=== PATIENT | female | born 1980 ===

== ENCOUNTER 2018-12-04 18:56 | Inpatient (IN) | payer OTHER ==
--- NOTE | 2018-12-04 19:17 | Emergency Department Report ---
Blank Doc - Documentation Documentation: This is a 39-year-old female that presents with chest pain, SOB, cough, and he adache. Also stated has had fevers. This initial assessment/diagnostic orders/clinical plan/treatment(s) is/are subject to change based on patient's health status, clinical progression and re-assessment by fellow clinical providers in the ED. Further treatment and workup at subsequent clinical providers discretion. Patient/guardians urged not to elope from the ED as their condition may be serious if not clinically assessed and managed. Initial orders include: 1- Patient sent to MAIN for further evaluation and treatment 2- EKG 3-CXR 4-Labs
[2018-12-04 19:38] LABS: Basophils # (Auto) 0.1 K/mm3 (0.0-0.1); Basophils % (Auto) 0.6 % (0.0-1.8); Eosinophils # (Auto) 0.1 K/mm3 (0.0-0.4); Eosinophils % (Auto) 0.5 % (0.0-4.3); Hematocrit 40.5 % (30.3-42.9); Hemoglobin 13.9 gm/dl (10.1-14.3); Lymphocytes # (Auto) 2.7 K/mm3 (1.2-5.4); Lymphocytes % (Auto) 28.1 % (13.4-35.0); Mean Corpuscular HGB Conc 35 % (30-34); Mean Corpuscular Volume 88 fl (79-97); Monocytes # (Auto) 0.8 K/mm3 (0.0-0.8); Monocytes % (Auto) 7.8 % (0.0-7.3); Platelet Count 305 K/mm3 (140-440); Red Blood Count 4.58 M/mm3 (3.65-5.03); Red Cell Distribution Width 13.5 % (13.2-15.2)
[2018-12-04 19:53] LABS: INR 0.87 (0.87-1.13)
[2018-12-04 19:54] LABS: Partial Thromboplastin Time 25.8 Sec. (24.2-36.6)
[2018-12-04 20:12] LABS: BUN/Creatinine Ratio 14; Blood Urea Nitrogen 7 mg/dL (7-17); Hemolysis Index 17
--- NOTE | 2018-12-04 20:47 | XRay Report ---
PROCEDURE: XR CHEST ROUTINE 2V TECHNIQUE: PA and lateral chest radiographs were obtained. HISTORY: Chest Pain COMPARISONS: None. FINDINGS: Heart: Normal. Mediastinum/Vessels: Normal. Lungs/Pleural space: There is moderate degree of elevation of right hemidiaphragm. Otherwise bilater al lungs and pleural spaces are clear.. Bony thorax: No acute osseous abnormality. IMPRESSION: No acute pulmonary process. This document is electronically signed by Naeem Reid MD., December 04 2018 08:45:09 PM ET
[2018-12-04] MEDS ORDERED: NACL 0.9% 1000 ML 1,000 ML IV ONE (21:28)
[2018-12-04] MEDS ORDERED: TORADOL IV ONE (21:28)
--- NOTE | 2018-12-04 21:38 | Emergency Department Report ---
ED General Adult HPI - General Chief complaint: Chest Pain Stated complaint: CHEST PAIN/FEVER/ARM FACE PAIN Time Seen by Provider: 12/04/18 19:13 Source: patient, family Mode of arrival: Ambulatory Limitations: No Limitations - History of Present Illness Initial comments: 39-year-old female, no past medical history, presents to the ED with flu-like symptoms and right facial pain 3 days. Patient reports cough, fever, chest pain with cough, vomiting. She also reports right facial pain and right anterior neck pain. Patient denies headache, sore throat, ear pain. Pain in the neck is worse with palpation. -: days(s) (3) Location: face, neck, chest Radiation: non-radiation Severity scale (0 -10): 9 Quality: aching Consistency: constant Improves with: none Worsens with: other (palpation) Associated Symptoms: chest pain, cough, fever/chills, nausea/vomiting - Related Data Home Medications Medication Instructions Recorded Confirmed Last Taken No Known Home Medications [No 12/05/18 12/05/18 Unknown Reported Home Medications] Allergies Allergy/AdvReac Type Severity Reaction Status Date / Time No Known Allergies Allergy Verified 12/05/18 00:25 ED Review of Systems ROS: Stated complaint: CHEST PAIN/FEVER/ARM FACE PAIN Other details as noted in HPI Comment: All other systems reviewed and negative Constitutional: fever ENT: denies: ear pain, throat pain Respiratory: cough. denies: shortness of breath Cardiovascular: chest pain (with cough) Gastrointestinal: nausea, vomiting Musculoskeletal: back pain Neurological: denies: headache ED Past Medical Hx - Past Medical History Previous Medical History?: No - Surgical History Past Surgical History?: Yes Additional Surgical History: c sec x2, gall stones - Social History Smoking Status: Never Smoker Substance Use Type: None - Medications Home Medications: Home Medications Medication Instructions Recorded Confirmed Last Taken Type No Known Home Medications [No 12/05/18 12/05/18 Unknown History Reported Home Medications] ED Physical Exam - General Limitations: No Limitations General appearance: alert - Head Head exam: Present: atraumatic, normocephalic - Eye Eye exam: Present: normal appearance - ENT ENT exam: Present: normal orophraynx, mucous membranes moist, TM's normal bilaterally - Neck Neck exam: Present: normal inspection, other (no swelling noted, tenderness to right anterior neck, no masses palpated) - Respiratory Respiratory exam: Present: normal lung sounds bilaterally. Absent: respiratory distress - Cardiovascular Cardiovascular Exam: Present: regular rate, normal rhythm - GI/Abdominal GI/Abdominal exam: Present: soft. Absent: distended, tenderness - Extremities Exam Extremities exam: Present: normal inspection - Neurological Exam Neurological exam: Present: alert, oriented X3 - Psychiatric Psychiatric exam: Present: normal affect, normal mood - Skin Skin exam: Present: warm, dry, intact, normal color ED Course Vital Signs 12/04/18 12/04/18 12/04/18 20:30 21:00 23:00 Temperature 98.2 F Pulse Rate 96 H 101 H 95 H Respiratory 19 17 17 Rate Blood Pressure 109/67 91/46 Blood Pressure 106/66 [Left] O2 Sat by Pulse 96 97 98 Oximetry 12/05/18 00:01 Temperature Pulse Rate 102 H Respiratory 11 L Rate Blood Pressure 93/49 Blood Pressure [Left] O2 Sat by Pulse 99 Oximetry - Reevaluation(s) Reevaluation #1: 12/05/18 00:01 Spoke w/ patient regarding CT findings. Patient denies numbness/ weakness in extremities, headache, visual changes, neck trauma, recent chiropractic manipulation. - Consultations Consultation #1: 12/04/18 23:12 Reached out to [facility] for neurovascular physician for pt's carotid dissection. I was put in contact w/ Dr Le, vascular surgeon, at [facility] Main. States pt likely does not require neurovascular since no neuro deficits. Only needs heparin gtt and vascular service here at [facility] should be able to handle. Dr Aric Hermosillo, vascular on-call at [facility], paged. 12/05/18 00:56 Spoke w/ Dr De Los Santos since unable to reach Dr Hermosillo. States ok for pt to be admitted here by hospitalist. Place on heparin drip, obtain dedicated CTA Head and Neck in the AM since pt already received IV contrast earlier. Will see in the AM. ED Medical Decision Making - Lab Data Result diagrams: 12/04/18 19:25 12/04/18 19:25 - Radiology Data Radiology results: report reviewed, image reviewed - Medical Decision Making 39-year-old female presents to ED with URI symptoms and right anterior neck pain. Vitals normal, patient afebrile. The CBC is normal. Patient with right anterior neck tenderness on exam, so CT soft tissue neck ordered. CT concerning for possible right carotid artery dissection. Patient is neurologically intact, denies any visual changes, denies headache. Spoke with vascular s Dr. Filiberto gasca. Recommends heparin drip and CTA head and neck in the morning. Patient will be admitted to the hospitalist, Dr Rothman. - Differential Diagnosis epiglottitis, parapharyngeal abscess, tonsillitis Critical Care Time: Yes Critical care time in (mins) excluding proc time.: 35 Critical care attestation.: If time is entered above; I have spent that time in minutes in the direct care o f this critically ill patient, excluding procedure time. Critical Care Time: 35 minutes ED Disposition Clinical Impression: Carotid artery dissection Disposition: OP ADMIT IP TO THIS HOSP Is pt being admited?: Yes Condition: Stable Time of Disposition: 01:07
--- NOTE | 2018-12-04 23:09 | Cat Scan Report ---
PROCEDURE: CT NECK W CON TECHNIQUE: Following administration of IV contrast axial helical imaging was performed through the n ada with sagittal and coronal reformatted images obtained. HISTORY: right sided neck pain Tenderness right side of neck to palpation. No history of recent traum a. COMPARISONS: None FINDINGS: There is abnormal decreased density with the appearance of slight marginal enhancement in the region of the right carotid sheath (images 52 through 59, series of 102 axial images). The Hounsfield units of this collection measures 55 which is higher than would be expected for simple edema or a simple fl uid collection. This is in the region of the distal common carotid artery and carotid bifurcation. Th ere is no evidence of decreased caliber of the vessel. There is normal enhancement of the carotid art tony without evidence of an intimal flap. There are no other areas of abnormal density in the soft tissues of the neck. There are mildly prominent bilateral cervical lymph nodes. These are nonspecific in appearance but ar e most likely inflammatory in nature. None demonstrate necrosis. The parotid and submandibular glands are unremarkable in appearance. There is no evidence of compromise of the airway. The epiglottis and aryepiglottic folds are normal i n appearance. There is mild prominence of the palatine tonsils and adenoids. The bony structures are unremarkable. IMPRESSION: 1. Abnormal density with slight marginal enhancement in the region of the right carotid sheath. Diffe rential diagnosis includes inflammatory process (carotidynia) and infectious process. A carotid disse ction cannot entirely be excluded given the Hounsfield units of 55 which could represent blood produc ts. The above finding was discussed with Dr. Ortiz at 10:50 PM December 04, 2018. 2. Otherwise normal study. This document is electronically signed by Suzanna Bustamante MD., December 04 2018 11:08:10 PM ET
[2018-12-05] MEDS ORDERED: NACL 0.9% 1000 ML 1,000 ML IV ONE (00:50)
[2018-12-05] MEDS: HEPARIN/ 0.45% NACL-25,000 UNIT/500 ML 25,000 UNIT/500 ML BAG IV SCH ×2 (02:02→15:28)
[2018-12-05] MEDS ORDERED: TYLENOL PR PRN (02:03)
[2018-12-05] MEDS ORDERED: KCL 10MEQ/100ML 10 MEQ/100 ML BAG IV ONE ×4 (03:59→10:56)
--- NOTE | 2018-12-05 05:23 | History and Physical Report ---
CHIEF COMPLAINT: Pain in the right anterior neck area. HISTORY OF PRESENT ILLNESS: The patient is a 39-year-old female who started initially by having flu-like symptoms and then developed right anterior neck and facial pain going on for about 3 days with symptoms of cough, fever, chest discomfort and vomiting. There is no history of headache, no history of sore throat or ear pain. The patient states that the pain is located in the anterior aspect of the right side of the neck, which is worse with palpation and movement. There is no history of trauma. PAST MEDICAL HISTORY: Unremarkable. PAST SURGICAL HISTORY: Pertinent for x 2 and gallbladder surgery. FAMILY HISTORY: Noncontributory. SOCIAL HISTORY: The patient does not smoke, does not drink alcohol, and does not use illicit drugs. MEDICATIONS: There are no known home medications. ALLERGIES: There are no known drug allergies. REVIEW OF SYSTEMS: CONSTITUTIONAL: There is fever. There is chills. No diaphoresis. HEENT: There is no headache or sore throat. CARDIOVASCULAR SYSTEM: There is chest discomfort especially with breathing. No orthopnea. RESPIRATORY SYSTEM: There is no shortness of breath, but there is cough. GASTROINTESTINAL SYSTEM: There is nausea and vomiting, no diarrhea, no abdominal pain. NEUROLOGICAL SYSTEM: There is no numbness, no dizziness, no altered mental status. MUSCULOSKELETAL SYSTEM: There is pain in the anterior aspect of the right side of the neck. There is no joint swelling. DERMATOLOGICAL SYSTEM: There is no skin rash or itching. GENITOURINARY SYSTEM: There is no dysuria, hematuria or flank pain. Rest of system review is normal. PHYSICAL EXAMINATION: GENERAL: At the time of exam, the patient was found to be alert, oriented x 3 and not in acute distress. VITAL SIGNS: At the initial time of presentation show temperature of 98.2 degrees Fahrenheit, pulse of 96, respirations 19, blood pressure 106/66, O2 sat of 96% on room air. HEENT: Shows pupils to be equal, round, and reactive to light and accommodating. Extraocular motions are intact. NECK: Supple with no JVD or carotid bruit, but there is tenderness in the right part of the neck on palpation. CARDIOVASCULAR: Shows normal first and second heart sounds with no gallops or murmur. RESPIRATORY SYSTEM: Shows good air entry on both sides of the lungs with no abnormal breath sounds. GASTROINTESTINAL SYSTEM: Shows abdomen to be full, soft, nontender with no organomegaly or rigidity. NEUROLOGIC: Shows no focal deficits. MUSCULOSKELETAL SYSTEM: Shows no joint swelling, but there is tenderness in the right anterior neck area with palpation. DERMATOLOGICAL SYSTEM: Shows no skin rash. GENITOURINARY SYSTEM: Shows no costovertebral angle tenderness. PERTINENT LABORATORY AND IMAGING STUDIES: The patient had a chest x-ray done and chest x-ray shows no acute pulmonary process. Also, the patient had CT of the neck done. CT of the neck shows dissection of the carotid artery. Lab results: The patient had CBC done that came back unremarkable except for slight increase in monocyte count of 7.8% on CBC differential. Coagulation studies were unremarkable. Chemistry: Chemistry showed slight decrease in potassium level of 3.2 and the patient's C-reactive protein was elevated with a value of 1.5. An influenza serology was unremarkable. DIAGNOSES: 1. Carotid artery dissection. 2. Hypokalemia. PLAN OF CARE: 1. The patient will be admitted to [facility] as inpatient. 2. The patient will continue IV heparin drip started in the Emergency Room as recommended by the vascular surgeon. 3. The patient will continue vascular surgical consult with Dr. De Los Santos who requested for CT angiogram of head and neck in the morning. 4. The patient will have CT angiogram of the head and neck done this morning. 5. The patient will be on IV morphine 2 mg every 3 hours as needed for pain and will be on Tylenol 650 mg rectally every 4 hours for fever and headache. 6. The patient will be on IV Zofran 4 mg every 8 hours as needed for nausea and vomiting and will be n.p.o. for possible intervention by the vascular surgeon. 7. The patient will have IV potassium chloride, K-rider given as 10 mEq in 100 mL of normal saline x 3 doses. 8. Further management of the patient's condition will be dependent on vascular surgical consult. JOB# [id number] OCN/NTS
[2018-12-05] MEDS: KCL 10MEQ/100ML 10 MEQ/100 ML BAG IV SCH ×3 (06:25→10:49)
--- NOTE | 2018-12-05 08:09 | Cat Scan Report ---
PROCEDURE: CT ANGIO HEAD, CT ANGIO NECK TECHNIQUE: CT imaging is obtained through the head and neck an angiographic phase following intraven ous administration of contrast. Transaxial, coronal and sagittal reformations with maximum intensity projection are provided HISTORY: CAROTID ARTERY DISECTION COMPARISONS: 12/04/2018 FINDINGS: Head: The anterior and posterior communicating arteries are normal in caliber. Well opacified anterior and middle cerebral arteries. Branch vessels within the anterior and middle cerebral arterial distribut ion are well opacified and normal in caliber. Normal caliber basilar artery. Posterior cerebral arteries and their major branches are well opacifi ed and normal in caliber. NECK: Carotid and vertebral arteries are well opacified and normal in caliber. No dissection flap. A small amount of asymmetric soft tissue is seen within the right carotid sheath at the bifurcation, unchange d from prior. No wall irregularity or contrast extravasation. The aortic arch is not well evaluated due to cardiac motion. The lung apices are unremarkable. Remain ing mucosal spaces of the neck are unremarkable. IMPRESSION: No intracranial stenosis/large vessel occlusion.The [place] is intact. No carotid or vertebral artery dissection identified. Asymmetric soft tissue within the carotid sheat h surrounding the right carotid bifurcation may again be infectious or inflammatory in etiology. Diff erential diagnosis also includes asymmetric lymphoid tissue, which is normally present in the carotid sheath. Correlation with ESR and relevant laboratory values for clinical evidence of vasculopathy is requested. This document is electronically signed by Jeovany Shirley MD., December 05 2018 08:07:41 AM ET
--- NOTE | 2018-12-05 08:55 | Event Note ---
Date: 12/05/[address] scans. No carotid dissection. There is an abnormal finding of soft tissue density around part of the carotid. Consider neurology or ENT consult. Will see patient later today.
[2018-12-05 13:35] LABS: Alanine Aminotransferase 16 units/L (7-56); Albumin 3.5 g/dL (3.9-5); BUN/Creatinine Ratio 18; Blood Urea Nitrogen 7 mg/dL (7-17); Calcium 8.1 mg/dL (8.4-10.2); Hemolysis Index 28
--- NOTE | 2018-12-05 15:44 | Progress Note ---
Subjective Date of service: 12/05/18 Principal diagnosis: Rule out Right Carotid Dissection Interval history: The patient is a 39 year old female from [facility], who has been in the [place] for 2 years. She states she has been having facial swelling for approximately 2 months and about 3 days ago she began experiencing Fever/Chills associated with right neck and facial pain. She started taking Amoxicillin, that was sent to her by a family member. The pain worsened over the next 3 days so she presented to the Emergency room. Her work up included a CT scan of her neck that was questionable for a dissection of her right carotid artery. She eventually had a CTA of the neck that ruled out the dissection but had some irregularity around the right carotid with inflammatory changes that may suggest a vasculitis. She has and elevated CRP and mildly elevated ESR. She denies diarrhea, Nausea, or vomiting. Objective - Constitutional Vitals: Vital Signs - 12hr 12/05/18 12/05/18 12/05/18 04:00 05:00 06:00 Pulse Rate 83 90 90 Respiratory 22 19 21 Rate Blood Pressure 101/62 110/61 106/57 O2 Sat by Pulse 100 100 Oximetry 12/05/18 07:05 Pulse Rate Respiratory Rate Blood Pressure 91/48 O2 Sat by Pulse 98 Oximetry - Labs CBC & Chem 7: 12/04/18 19:25 12/05/18 13:04 Labs: Abnormal lab results 12/04/18 12/04/18 12/05/18 Range/Units 19:25 19:25 00:49 MCHC 35 H (30-34) % [place] % (Auto) 7.8 H (0.0-7.3) % Potassium 3.2 L (3.6-5.0) mmol/L Chloride (98-107) mmol/L Carbon Dioxide 19 L (22-30) mmol/L Creatinine 0.5 L (0.7-1.2) mg/dL Glucose 137 H (65-100) mg/dL Calcium (8.4-10.2) mg/dL C-Reactive Protein 1.50 H (0.00-1.30) mg/dL Albumin (3.9-5) g/dL 12/05/18 Range/Units 13:04 MCHC (30-34) % [place] % (Auto) (0.0-7.3) % Potassium 3.4 L (3.6-5.0) mmol/L Chloride 108.1 H (98-107) mmol/L Carbon Dioxide 21 L (22-30) mmol/L Creatinine 0.4 L (0.7-1.2) mg/dL Glucose (65-100) mg/dL Calcium 8.1 L (8.4-10.2) mg/dL C-Reactive Protein (0.00-1.30) mg/dL Albumin 3.5 L (3.9-5) g/dL Medications & Allergies - Medications Allergies/Adverse Reactions: Allergies No Known Allergies Allergy (Verified 12/05/18 00:25) Home Medications: Home Medications Medication Instructions Recorded Confirmed Last Taken Type No Known Home Medications [No 12/05/18 12/05/18 Unknown History Reported Home Medications] Active Medications: Generic Name Dose Route Start Last Admin Trade Name Freq PRN Reason Stop Dose Admin Acetaminophen 650 mg 12/05/18 02:03 Tylenol MT Q4H PRN Fever >101 Heparin Sodium/Sodium Chloride 25,000 unit in 500 mls @ 29 mls/hr 12/05/18 01:00 12/05/18 11:30 Heparin/ 0.45% Nacl-25,000 Unit/500 Ml IV Infused TITR ISA Titration Protocol 1,450 UNITS/HR Morphine Sulfate 2 mg 12/05/18 02:01 Morphine IV Q3H PRN Pain, Moderate (4-6) Ondansetron HCl 4 mg 12/05/18 02:02 Zofran IV Q8H PRN Nausea And Vomiting
--- NOTE | 2018-12-05 16:06 | Consultation ---
History of Present Illness - Reason for Consult Consult date: 12/05/18 Rule Out Right Carotid Disscetion Requesting physician: NADEEN GLEZ - History of Present Illness The patient is a 39 year old female from [facility], who has been in the [facility] for 2 years. She states she has been having facial swelling for approximately 2 months and about 3 days ago she began experiencing Fever/Chills associated with right neck and facial pain. She started taking Amoxicillin, that was sent to her by a family member. The pain worsened over the next 3 days so she presented to the Emergency room. Her work up included a CT scan of her neck that was questionable for a dissection of her right carotid artery. She eventually had a CTA of the neck that ruled out the dissection but had some irregularity around the right carotid with inflammatory changes that may suggest a vasculitis. She has and elevated CRP and mildly elevated ESR. She denies diarrhea, Nausea, or vomiting. Past History Past Surgical History: cholecystectomy, Social history: no significant social history Family history: no significant family history Medications and Allergies Allergies Allergy/AdvReac Type Severity Reaction Status Date / Time No Known Allergies Allergy Verified 12/05/18 00:25 Home Medications Medication Instructions Recorded Confirmed Last Taken Type No Known Home Medications [No 12/05/18 12/05/18 Unknown History Reported Home Medications] Active Meds: Active Medications Acetaminophen (Tylenol) 650 mg NC Q4H PRN PRN Reason: Fever >101 Heparin Sodium/Sodium Chloride (Heparin/ 0.45% Nacl-25,000 Unit/500 Ml) 25,000 unit in 500 mls @ 29 mls/hr IV TITR ISA; Protocol Last Titration: 12/05/18 11:30 Dose: Infused Documented by: Morphine Sulfate (Morphine) 2 mg IV Q3H PRN PRN Reason: Pain, Moderate (4-6) Ondansetron HCl (Zofran) 4 mg IV Q8H PRN PRN Reason: Nausea And Vomiting Review of Systems Constitutional: fever, chills, anorexia, poor appetite Ears, nose, mouth and throat: ear pain, other (Facial swelling), no tinnitis, no dental pain, no mouth pain Breasts: deferred Cardiovascular: no chest pain, no shortness of breath Respiratory: cough, no hemoptysis, no shortness of breath, no dyspnea on exertion Gastrointestinal: no nausea, no vomiting, no diarrhea Genitourinary Female: no dyspareunia Musculoskeletal: neck pain (right) Integumentary: no rash Neurological: no paralysis, no weakness, no parathesias, no numbness, no tingling Exam - Constitutional Vitals: Temp Pulse Resp BP Pulse Ox 98.2 F 90 21 91/48 98 12/04/18 20:30 12/05/18 06:00 12/05/18 06:00 12/05/18 07:05 12/05/18 07:05 General appearance: Present: no acute distress, other (Facial swelling) - Neck Neck: Present: supple, other (tenderness over the right neck/carotid) - Respiratory Respiratory effort: normal - Cardiovascular Rhythm: regular - Extremities Extremities: no ischemia, pulses intact Peripheral Pulses: within normal limits - Abdominal General gastrointestinal: Present: soft, non-tender, non-distended Female genitourinary: Present: deferred - Rectal Rectal Exam: deferred - Integumentary Integumentary: Present: clear - Musculoskeletal Musculoskeletal: strength equal bilaterally - Neurologic Neurologic: no focal deficits Results - Labs CBC & Chem 7: 12/04/18 19:25 12/05/18 13:04 Labs: Abnormal lab results 12/04/18 12/04/18 12/05/18 Range/Units 19:25 19:25 00:49 MCHC 35 H (30-34) % [place] % (Auto) 7.8 H (0.0-7.3) % Potassium 3.2 L (3.6-5.0) mmol/L Chloride (98-107) mmol/L Carbon Dioxide 19 L (22-30) mmol/L Creatinine 0.5 L (0.7-1.2) mg/dL Glucose 137 H (65-100) mg/dL Calcium (8.4-10.2) mg/dL C-Reactive Protein 1.50 H (0.00-1.30) mg/dL Albumin (3.9-5) g/dL 12/05/18 Range/Units 13:04 MCHC (30-34) % [place] % (Auto) (0.0-7.3) % Potassium 3.4 L (3.6-5.0) mmol/L Chloride 108.1 H (98-107) mmol/L Carbon Dioxide 21 L (22-30) mmol/L Creatinine 0.4 L (0.7-1.2) mg/dL Glucose (65-100) mg/dL Calcium 8.1 L (8.4-10.2) mg/dL C-Reactive Protein (0.00-1.30) mg/dL Albumin 3.5 L (3.9-5) g/dL - Imaging and Cardiology CT Scan - head: other (CTA Neck reviewed) Assessment and Plan The patient does not have a carotid dissection so the Heparin drip was stopped. She has elevated CRP and mildly elevated ESR with evidence of thickening and inflammation of the right carotid. Recommend Rheumatology evaluation, which will likely be performed as an outpatient. Consider consulting neurology for suggestions of further workup as an inpatient. May try a course of steroid to see if this resolves her symptoms.
--- NOTE | 2018-12-05 17:20 | Consultation ---
History of Present Illness Consult date: 12/05/18 Chief complaint: facial pain, lymphadenopathy History of present illness: This is a 39 YO F who presented to the ED with ~ 4 days of facial pain, swelling, fever and chills. Pt is interviewed with on site interpretor. Says she took amoxicillin sent to her by a family member but did not get better. Weak all over but no specific weakness in her arms or legs. No trouble moving her face, speaking or swallowing. No recent illness or medication changes. Past History Past Surgical History: cholecystectomy, Social history: no significant social history Family history: no significant family history Medications and Allergies Allergies Allergy/AdvReac Type Severity Reaction Status Date / Time No Known Allergies Allergy Verified 12/05/18 00:25 Home Medications Medication Instructions Recorded Confirmed Last Taken Type No Known Home Medications [No 12/05/18 12/05/18 Unknown History Reported Home Medications] Active Meds: Active Medications Acetaminophen (Tylenol) 650 mg [place] Q4H PRN PRN Reason: Fever >101 Heparin Sodium/Sodium Chloride (Heparin/ 0.45% Nacl-25,000 Unit/500 Ml) 25,000 unit in 500 mls @ 29 mls/hr IV TITR ISA; Protocol Last Titration: 12/05/18 11:30 Dose: Infused Documented by: Methylprednisolone Sodium Succinate (Solu-Medrol) 40 mg IV Q12H ISA Morphine Sulfate (Morphine) 2 mg IV Q3H PRN PRN Reason: Pain, Moderate (4-6) Ondansetron HCl (Zofran) 4 mg IV Q8H PRN PRN Reason: Nausea And Vomiting Review of Systems Constitutional: fever, chills Physical Examination - Vital Signs Vital Signs: Vital Signs Temp Pulse Resp BP Pulse Ox 98.2 F 96 H 19 106/66 96 12/04/18 20:30 12/04/18 20:30 12/04/18 20:30 12/04/18 20:30 12/04/18 20:30 - Constitutional General appearance: comfortable - EENT EENT: Present: ATNC, mucous membranes moist, other (glandular swelling at the angle of the mandible on the right, ? parotid) - Respiratory Respiratory: Present: lungs clear - Cardiovascular Cardiovascular: Present: regular rate - Gastrointestinal Gastrointestinal: Present: normoactive bowel sounds - Neurologic Cranial nerve examination: PERRL, EOMI, V1/V2/V3 grossly intact, face symmetric, tongue midline Speech examination: intact Sensorimotor examination: intact Motor examination - right side: 12/29: biceps, triceps, wrist flexion, wrist extension, precision instrument and tool maker, hip flexors, knee extensors, dorsiflexion, toe extension (EHL), plantarflexion Motor examination - left side: 12/29: biceps, triceps, wrist flexion, wrist extension, precision instrument and tool maker, hip flexors, knee extensors, dorsiflexion, toe extension (EHL), plantarflexion Detailed sensory examination: intact Reflex and gait examination: intact Reflexes: 1+: ankle, bicep, knee, tricep - Psychiatric Psychiatric: Present: mood/affect appropriate Results - Laboratory Findings CBC and BMP: 12/04/18 19:25 12/05/18 13:04 Abnormal Lab Findings: Abnormal Labs 12/04/18 12/04/18 12/05/18 19:25 19:25 00:49 MCHC 35 H [place] % (Auto) 7.8 H Potassium 3.2 L Chloride Carbon Dioxide 19 L Creatinine 0.5 L Glucose 137 H Calcium C-Reactive Protein 1.50 H Albumin 12/05/18 13:04 MCHC [place] % (Auto) Potassium 3.4 L Chloride 108.1 H Carbon Dioxide 21 L Creatinine 0.4 L Glucose Calcium 8.1 L C-Reactive Protein Albumin 3.5 L - Diagnostic Findings Additional findings: cta head and neck unremarkable, ? mild change at bifurcation stable since last examination CRP slightly elevated Assessment and Plan This is a 39 YO F with right glandular swelling, likely infection/inflammation. No neurological deficits. Not consistent with vasculitis. Recommend: Needs medical work up for infection- consider ID eval if unclear about antib iotics needed Consider possible CT of soft tissue of the neck or consult with radiology on how best to view the glands in the area of question Would NOT give steroids at this point since per presentation is consistent with infection Continue care for any medical issues as you are doing Thank you for the consult.
--- NOTE | 2018-12-05 17:43 | Progress Note ---
Assessment and Plan Assessment and plan: --Swelling of face and neck; Emperic antibiotics, --Swelling around the right carotid sheath /probably infectious Empiric antibiotics, cultures, supportive care --? Carotid artery dissection; vascular evaluated, ruled out carotid artery dissection Heparin drip discontinued --History of febrile illness, cultures, empiric antibiotics --Hypokalemia: replaced with KCl; --Obesity; BMI 38.3, weight reduction and medically stable Closely monitor the patient and adjust management as needed History Interval history: Patient seen and examined, conversed through bilingual staff member Patient was admitted this morning with neck and facial swelling Evaluated but ,IR,vascular, neurology Evaluation and recommendations noted and appreciated Patient feels slightly better Denies shortness of breath Complaints of mild headache Vital Signs noted Hospitalist Physical - Constitutional Vitals: Temp Pulse Resp BP Pulse Ox 98.2 F 90 21 91/48 98 12/04/18 20:30 12/05/18 06:00 12/05/18 06:00 12/05/18 07:05 12/05/18 07:05 General appearance: Present: no acute distress, well-nourished, other (Facial swelling) - EENT Eyes: Present: PERRL, EOM intact - Neck Neck: Present: supple, other (mild swelling side of the neck) - Respiratory Respiratory effort: normal Respiratory: bilateral: diminished, negative: rales, rhonchi, wheezing - Cardiovascular Rhythm: regular Heart Sounds: Present: S1 & S2 - Extremities Extremities: no ischemia, No edema - Abdominal General gastrointestinal: soft, non-tender, non-distended, normal bowel sounds - Integumentary Integumentary: Present: clear, warm - Psychiatric Psychiatric: appropriate mood/affect, cooperative - Neurologic Neurologic: CNII-XII intact, moves all extremities Results - Labs CBC & Chem 7: 12/04/18 19:25 12/05/18 13:04 Labs: Laboratory Last Values WBC 9.7 K/mm3 (4.5-11.0) 12/04/18 19:25 RBC 4.58 M/mm3 (3.65-5.03) 12/04/18 19:25 Hgb 13.9 gm/dl (10.1-14.3) 12/04/18 19:25 Hct 40.5 % (30.3-42.9) 12/04/18 19:25 MCV 88 fl (79-97) 12/04/18 19:25 MCH 30 pg (28-32) 12/04/18 19:25 MCHC 35 % (30-34) H 12/04/18 19:25 RDW 13.5 % (13.2-15.2) 12/04/18 19:25 Plt Count 305 K/mm3 (140-440) 12/04/18 19:25 Lymph % (Auto) 28.1 % (13.4-35.0) 12/04/18 19:25 [place] % (Auto) 7.8 % (0.0-7.3) H 12/04/18 19:25 Eos % (Auto) 0.5 % (0.0-4.3) 12/04/18:25 Baso % (Auto) 0.6 % (0.0-1.8) 12/04/18 19:25 Lymph # 2.7 K/mm3 (1.2-5.4) 12/04/18 19:25 [place] # 0.8 K/mm3 (0.0-0.8) 12/04/18 19:25 Eos # 0.1 K/mm3 (0.0-0.4) 12/04/18 19:25 Baso # 0.1 K/mm3 (0.0-0.1) 12/04/18 19:25 Seg Neutrophils % 63.0 % (40.0-70.0) 12/04/18 19:25 Seg Neutrophils # 6.1 K/mm3 (1.8-7.7) 12/04/18 19:25 ESR 31 mm/Hr (0-20) 12/05/18 00:49 PT 13.8 Sec. (12.2-14.9) 12/05/18 00:49 INR 1.00 (0.87-1.13) 12/05/18 00:49 APTT 30.0 Sec. (24.2-36.6) 12/05/18 00:49 Heparin Anti-Xa Level 0.48 U.I./ml (0.3-0.7) 12/05/18 07:45 Sodium 141 mmol/L (137-145) 12/05/18 13:04 Potassium 3.4 mmol/L (3.6-5.0) L 12/05/18 13:04 Chloride 108.1 mmol/L (98-107) H 12/05/18 13:04 Carbon Dioxide 21 mmol/L (22-30) L 12/05/18 13:04 Anion Gap 15 mmol/L 12/05/18 13:04 BUN 7 mg/dL (7-17) 12/05/18 13:04 Creatinine 0.4 mg/dL (0.7-1.2) L 12/05/18 13:04 Estimated GFR > 60 ml/min 12/05/18 13:04 BUN/Creatinine Ratio 18 % 12/05/18 13:04 Glucose 90 mg/dL (65-100) 12/05/18 13:04 Calcium 8.1 mg/dL (8.4-10.2) L 12/05/18 13:04 Total Bilirubin 0.40 mg/dL (0.1-1.2) 12/05/18 13:04 AST 18 units/L (5-40) 12/05/18 13:04 ALT 16 units/L (7-56) 12/05/18 13:04 Alkaline Phosphatase 59 units/L (35-129) 12/05/18 13:04 Troponin T < 0.010 ng/mL (0.00-0.029) 12/04/18 22:37 C-Reactive Protein 1.50 mg/dL (0.00-1.30) H 12/05/18 00:49 Total Protein 6.4 g/dL (6.3-8.2) 12/05/18 13:04 Albumin 3.5 g/dL (3.9-5) L 12/05/18 13:04 Albumin/Globulin Ratio 1.2 % 12/05/18 13:04 HCG, Qual Negative (Negative) 12/04/18 19:25 Influenza A (Rapid) Negative (Negative) 12/04/18 21:50 Influenza B (Rapid) Negative (Negative) 12/04/18 21:50 Group A Strep Rapid Negative (Negative) 12/04/18 21:50 Active Medications - Current Medications Current Medications: Generic Name Dose Route Start Last Admin Trade Name Freq PRN Reason Stop Dose Admin Acetaminophen 650 mg 12/05/18 02:03 Tylenol [place] Q4H PRN Fever >101 Amoxicillin/Clavulanate Potassium 1 each 12/05/18 22:00 Augmentin 875 Mg PO Q12HR ISA Morphine Sulfate 2 mg 12/05/18 02:01 Morphine IV Q3H PRN Pain, Moderate (4-6) Ondansetron HCl 4 mg 12/05/18 02:02 Zofran IV Q8H PRN Nausea And Vomiting
[2018-12-05] MEDS ORDERED: SOLU-Medrol IV SCH (18:00)
[2018-12-05] MEDS: AUGMENTIN 875 MG PO SCH (21:17)
[2018-12-05] MEDS: MORPHINE IV PRN (21:17)
[2018-12-06] MEDS: MORPHINE IV PRN ×3 (05:53→18:03)
[2018-12-06 06:58] LABS: Basophils # (Auto) 0.1 K/mm3 (0.0-0.1); Basophils % (Auto) 1.2 % (0.0-1.8); Eosinophils # (Auto) 0.1 K/mm3 (0.0-0.4); Eosinophils % (Auto) 1.5 % (0.0-4.3); Hematocrit 37.3 % (30.3-42.9); Hemoglobin 13.1 gm/dl (10.1-14.3); Lymphocytes % (Auto) 32.5 % (13.4-35.0); Mean Corpuscular HGB Conc 35 % (30-34); Mean Corpuscular Volume 88 fl (79-97); Monocytes # (Auto) 0.6 K/mm3 (0.0-0.8); Monocytes % (Auto) 6.1 % (0.0-7.3); Red Blood Count 4.22 M/mm3 (3.65-5.03); Red Cell Distribution Width 13.8 % (13.2-15.2)
[2018-12-06 08:01] LABS: Albumin 3.3 g/dL (3.9-5); BUN/Creatinine Ratio 18; Blood Urea Nitrogen 9 mg/dL (7-17); Calcium 8.4 mg/dL (8.4-10.2); Hemolysis Index 125
[2018-12-06 08:13] LABS: Alanine Aminotransferase 16 units/L (7-56)
[2018-12-06 08:43] LABS: Platelet Count 247 K/mm3 (140-440)
[2018-12-06] MEDS: AUGMENTIN 875 MG PO SCH (09:15)
--- NOTE | 2018-12-06 12:45 | Progress Note ---
Assessment and Plan Assessment and plan: --Right-sided neck swelling; ?cellulitis/?lymphadenitis. Empiric antibiotics and cultures, ID consulted, --Swelling of face and neck; continue current management Follow CTA chest to rule out possible SVC syndrome[unlikely] --Swelling around the right carotid sheath /probably infectious Empiric antibiotics, cultures, supportive care --History of fever prior to hosp visit; afebrile since adm --Hypokalemia ; corrected --Moderate malnutrition/hypoalbuminemia, supportive care --Obesity; BMI 38.3, weight reduction and medically stable Closely monitor the patient and adjust management as needed I discussed with the patient her condition and treatment plan through the language line Answered all her questions History Interval history: Patient seen and examined medical records reviewed Family members at the bedside,I used the language line to communicate She complains of right-sided neck pain Denies nausea or vomiting, afebrile Vital signs noted Hospitalist Physical - Constitutional Vitals: Temp Pulse Resp BP Pulse Ox 98.4 F 77 20 85/40 95 12/06/18 12:23 12/06/18 12:23 12/06/18 12:23 12/06/18 12:23 12/06/18 12:23 General appearance: Present: no acute distress, well-nourished, other (Facial swelling) - Neck Neck: Present: other (right-sided neck swelling, tenderness) - Respiratory Respiratory effort: normal Respiratory: negative: rales, rhonchi, wheezing - Cardiovascular Rhythm: regular Heart Sounds: Present: S1 & S2 - Extremities Extremities: no ischemia, No edema - Abdominal General gastrointestinal: soft, non-tender, non-distended, normal bowel sounds - Integumentary Integumentary: Present: clear, warm - Psychiatric Psychiatric: appropriate mood/affect, cooperative - Neurologic Neurologic: moves all extremities Results - Labs CBC & Chem 7: 12/06/18 06:31 04 06:31 Labs: Laboratory Last Values WBC 9.3 K/mm3 (4.5-11.0) 12/06/18 06:31 RBC 4.22 M/mm3 (3.65-5.03) 12/06/18 06:31 Hgb 13.1 gm/dl (10.1-14.3) 12/06/18 06:31 Hct 37.3 % (30.3-42.9) 12/06/18 06:31 MCV 88 fl (79-97) 12/06/18 06:31 MCH 31 pg (28-32) 12/06/18 06:31 MCHC 35 % (30-34) H 12/06/18 06:31 RDW 13.8 % (13.2-15.2) 12/06/18 06:31 Plt Count 247 K/mm3 (140-440) 12/06/18 06:31 Lymph % (Auto) 32.5 % (13.4-35.0) 12/06/18 06:31 [place] % (Auto) 6.1 % (0.0-7.3) 12/06/18 06:31 Eos % (Auto) 1.5 % (0.0-4.3) 12/06/18 06:31 Baso % (Auto) 1.2 % (0.0-1.8) 12/06/18 06:31 Lymph # 3.0 K/mm3 (1.2-5.4) 12/06/18 06:31 [place] # 0.6 K/mm3 (0.0-0.8) 12/06/18 06:31 Eos # 0.1 K/mm3 (0.0-0.4) 12/06/18 06:31 Baso # 0.1 K/mm3 (0.0-0.1) 12/06/18 06:31 Seg Neutrophils % 58.7 % (40.0-70.0) 12/06/18 06:31 Seg Neutrophils # 5.4 K/mm3 (1.8-7.7) 12/06/18 06:31 ESR 31 mm/Hr (0-20) 12/05/18 00:49 PT 13.8 Sec. (12.2-14.9) 12/05/18 00:49 INR 1.00 (0.87-1.13) 12/05/18 00:49 APTT 30.0 Sec. (24.2-36.6) 12/05/18 00:49 Heparin Anti-Xa Level 0.48 U.I./ml (0.3-0.7) 12/05/18 07:45 Sodium 138 mmol/L (137-145) 12/06/18 06:31 Potassium 4.3 mmol/L (3.6-5.0) D 12/06/18 06:31 Chloride 104.8 mmol/L (98-107) 12/06/18 06:31 Carbon Dioxide 21 mmol/L (22-30) L 12/06/18 06:31 Anion Gap 17 mmol/L 12/06/18 06:31 BUN 9 mg/dL (7-17) 12/06/18 06:31 Creatinine 0.5 mg/dL (0.7-1.2) L 12/06/18 06:31 Estimated GFR > 60 ml/min 12/06/18 06:31 BUN/Creatinine Ratio 18 % 12/06/18 06:31 Glucose 102 mg/dL (65-100) H 12/06/18 06:31 Calcium 8.4 mg/dL (8.4-10.2) 12/06/18 06:31 Total Bilirubin 0.30 mg/dL (0.1-1.2) 12/06/18 06:31 AST 23 units/L (5-40) 12/06/18 06:31 ALT 16 units/L (7-56) 12/06/18 06:31 Alkaline Phosphatase 60 units/L (35-129) 12/06/18 06:31 Troponin T < 0.010 ng/mL (0.00-0.029) 12/04/18 22:37 C-Reactive Protein 1.50 mg/dL (0.00-1.30) H 12/05/18 00:49 Total Protein 6.6 g/dL (6.3-8.2) 12/06/18 06:31 Albumin 3.3 g/dL (3.9-5) L 12/06/18 06:31 Albumin/Globulin Ratio 1.0 % 12/06/18 06:31 HCG, Qual Negative (Negative) 12/04/18 19:25 Influenza A (Rapid) Negative (Negative) 12/04/18 21:50 Influenza B (Rapid) Negative (Negative) 12/04/18 21:50 Group A Strep Rapid Negative (Negative) 12/04/18 21:50 Active Medications - Current Medications Current Medications: Generic Name Dose Route Start Last Admin Trade Name Freq PRN Reason Stop Dose Admin Acetaminophen 650 mg 12/05/18 02:03 Tylenol [place] Q4H PRN Fever >101 Morphine Sulfate 2 mg 12/05/18 02:01 12/06/18 09:14 Morphine IV 2 mg Q3H PRN Administration Pain, Moderate (4-6) Ondansetron HCl 4 mg 12/05/18 02:02 Zofran IV Q8H PRN Nausea And Vomiting
--- NOTE | 2018-12-06 14:18 | Consultation ---
History of Present Illness - Reason for Consult Consult date: 12/06/18 Right neck swelling, ?infection Requesting physician: ABEL SESAY - History of Present Illness The patient is a 39-year-old female (U[place]-speaking only, history obtained through the help of Victoria Plumb barrel charrer helper phone) with no significant past medical history who is originally from [place], moved to the about 7 years ago was at her baseline state of health until about 7 days ago. About 3 days prior to admission, she started developing a right facial and neck swelling with pain. She felt feverish but did not check her temperature at home. The pain was quite severe, hence came to the emergency room and was hospitalized. Initial CT neck raise some concerns for possible carotid dissection however follow-up CTA of the head and neck showed some enhancement of the carotid sheath on the right side. She denies any sore throat or cough. She denies any shortness of breath. She denies any nausea, vomiting or diarrhea. She denies any dysphagia. Complains of headaches as well as right-sided neck pain which hasn't improved much since admission, reports slight relief with pain medications. She has remained afebrile here. She was evaluated by vascular surgery as well as neurology. Denies smoking, alcohol or recreational drug use. She is sexually active. Has kids. Denies any pets at home. Denies any previous history of STDs. Family history of diabetes and cancer. Denies any history of autoimmune diseases in the family. She is status post tubal ligation. Does not take any medications at home. Review of Systems: General: no fevers,chills or rigors here HEENT: no new visual disturbance, no diplopia Respiratory: No cough, sputum, hemoptysis or shortness of breath Cardiovascular: No chest pain, syncope. Reports some dizziness Gastrointestinal: No nausea, vomiting or diarrhea Genitourinary: No dysuria or hematuria Musculoskeletal: Right neck pain, no new back pain Neurologic: headaches +, no seizures Hematologic: No easy bruising or bleeding Endocrine: No night sweats or acute weight loss Skin: negative for rash, jaundice Psychiatric: No suicidal or homicidal ideation Past History Past Surgical History: cholecystectomy, Social history: no significant social history Family history: no significant family history Medications and Allergies Allergies Allergy/AdvReac Type Severity Reaction Status Date / Time No Known Allergies Allergy Verified 12/05/18 00:25 Home Medications Medication Instructions Recorded Confirmed Last Taken Type No Known Home Medications [No 12/05/18 12/05/18 Unknown History Reported Home Medications] Active Meds: Active Medications Acetaminophen (Tylenol) 650 mg [place] Q4H PRN PRN Reason: Fever >101 Enoxaparin Sodium (Lovenox) 40 mg SUB-Q QDAY@2200 ISA Famotidine (Pepcid) 20 mg PO BID ISA Sodium Chloride (Nacl 0.9% 1000 Ml) 1,000 mls @ 100 mls/hr IV DIRECT ISA Morphine Sulfate (Morphine) 2 mg IV Q3H PRN PRN Reason: Pain, Moderate (4-6) Last Admin: 12/06/18 09:14 Dose: 2 mg Documented by: Ondansetron HCl (Zofran) 4 mg IV Q8H PRN PRN Reason: Nausea And Vomiting Oxycodone/Acetaminophen (Percocet 5/325) 1 tab PO Q6H PRN PRN Reason: Pain, Moderate (4-6) Physical Examination - Physical Exam Narrative exam: Physical Exam: Constitutional: Alert, cooperative. No acute distress Head, Ears, Nose: Normocephalic, atraumatic. External ears, nose normal Eyes: Conjunctivae/corneas clear. No icterus. No ptosis. Neck: Supple, no meningeal signs Oral: dentition fair, no thrush Cardiovascular: S1, S2 normal. Respiratory: Good air entry, clear to auscultation bilaterally GI: Soft, non-tender; bowel sounds normal. No peritoneal signs Musculoskeletal: No pedal edema, no cyanosis. Skin: No rash or abscess Hem/Lymphatic: No palpable cervical or supraclavicular nodes. No lymphangitis Psych: Mood ok. Affect normal Neurological: Awake, alert, oriented. No gross abnormality - Constitutional Vitals: Vital Signs Temp Pulse Resp BP Pulse Ox 98.4 F 77 20 85/40 95 12/06/18 12:23 12/06/18 12:23 12/06/18 12:23 12/06/18 12:23 12/06/18 12:23 Temperature -Last 24 Hours Temperature 98.4 F Temperature 97.9 F Temperature 98.0 F Results - Labs CBC & Chem 7: 12/06/18 06:31 12/06/18 06:31 Labs: Abnormal lab results 12/06/18 12/06/18 Range/Units 06:31 06:31 MCHC 35 H (30-34) % Carbon Dioxide 21 L (22-30) mmol/L Creatinine 0.5 L (0.7-1.2) mg/dL Glucose 102 H (65-100) mg/dL Albumin 3.3 L (3.9-5) g/dL - Imaging and Cardiology Chest x-ray: report reviewed, image reviewed (Chest x-ray shows no acute cardiopulmonary process.) CT Scan - head: report reviewed, image reviewed (and neck showed no intra- cranial abnormality. CT neck showed marginal enhancement of the right carotid sheath.) Assessment and Plan Cultures: 12/04/2018 throat culture: In process 12/05/2018 ESR: 31, CRP: 1.5 12/05/2018 Influenza rapid: negative A/P: 39-year-old female (Uzbek-speaking only, history obtained through the help of Victoria Plumb barrel charrer helper phone) with no significant past medical history who is originally from [place], moved to the about 7 years ago) admitted with: 1) Unilateral (right) neck swelling, tenderness: with CT evidence of carotid sh eath enhancement. There is no leukocytosis or fever. No enhancement/thrombosis of the right internal jugular vein to suggest any septic thrombophlebitis/Lemierre's syndrome. Rather acute onset, hence, infectious etiology possible. Autoimmune conditions possible too. Given location and pr oximity to the vessels, reasonable to treat empirically with IV abx. Recs: Blood cultures ordered Discontinued amoxicillin/clavulanate Started Unasyn Autoimmune work up ordered: C3, C4, JAMES, ds-DNA, RA, ANCA conveyor monitor temperature and WBC Follow up CT chest d/w Dr. Sesay. Serg Desai MD [facility] C: [phone] O: [phone] F: [phone]
[2018-12-06] MEDS ORDERED: NACL 0.9% 1000 ML 1,000 ML IV SCH (15:00)
[2018-12-06] MEDS: UNASYN/NS 3 GM/100 ML 3 GM/100 ML BAG IV SCH (18:18)
[2018-12-06] MEDS: PEPCID PO SCH (21:39)
[2018-12-06] MEDS: LOVENOX SUB-Q SCH (21:39)
[2018-12-07] MEDS: UNASYN/NS 3 GM/100 ML 3 GM/100 ML BAG IV SCH ×4 (01:01→18:20)
[2018-12-07] MEDS: PERCOCET 5/325 PO PRN ×2 (01:01→18:23)
[2018-12-07] MEDS: PEPCID PO SCH ×2 (11:21→22:11)
--- NOTE | 2018-12-07 16:16 | Progress Note ---
Assessment and Plan Assessment and plan: --Right-sided neck swelling; ?cellulitis/?lymphadenitis. Empiric antibiotics and cultures, ID consulted, --Swelling of face and neck; continue current management Follow CTA chest to rule out possible SVC syndrome[unlikely] --Swelling around the right carotid sheath /probably infectious Empiric antibiotics, cultures, supportive care --History of fever prior to hosp visit; afebrile since adm --Hypokalemia ; corrected --Moderate malnutrition/hypoalbuminemia, supportive care --Obesity; BMI 38.3, weight reduction and medically stable Closely monitor the patient and adjust management as needed I discussed with the patient her condition and treatment plan through the language line Answered all her questions History Interval history: Patient seen and examined medical records reviewed[conversation with patient's through a bilingual family member] No new events reported by the nursing staff Patient continues to have some facial swelling History of present, denies any shortness of breath or headache Vital signs noted Hospitalist Physical - Constitutional Vitals: Temp Pulse Resp BP Pulse Ox 97.3 F L 63 22 104/47 97 12/07/18 11:41 12/07/18 11:41 12/07/18 11:41 12/07/18 11:41 12/07/18 05:21 General appearance: Present: no acute distress, well-nourished, other (Facial swelling) - EENT Eyes: Present: PERRL, EOM intact - Neck Neck: Present: supple, normal ROM - Respiratory Respiratory effort: normal Respiratory: bilateral: diminished, negative: rales, rhonchi, wheezing - Cardiovascular Rhythm: regular Heart Sounds: Present: S1 & S2 - Extremities Extremities: no ischemia, pulses intact - Abdominal General gastrointestinal: soft, non-tender, non-distended, normal bowel sounds - Integumentary Integumentary: Present: clear, warm - Psychiatric Psychiatric: cooperative Results - Labs CBC & Chem 7: 12/06/18 06:31 04 06:31 Labs: Laboratory Last Values WBC 9.3 K/mm3 (4.5-11.0) 12/06/18 06:31 RBC 4.22 M/mm3 (3.65-5.03) 12/06/18 06:31 Hgb 13.1 gm/dl (10.1-14.3) 12/06/18 06:31 Hct 37.3 % (30.3-42.9) 12/06/18 06:31 MCV 88 fl (79-97) 12/06/18 06:31 MCH 31 pg (28-32) 12/06/18 06:31 MCHC 35 % (30-34) H 12/06/18 06:31 RDW 13.8 % (13.2-15.2) 12/06/18 06:31 Plt Count 247 K/mm3 (140-440) 12/06/18 06:31 Lymph % (Auto) 32.5 % (13.4-35.0) 12/06/18 06:31 [place] % (Auto) 6.1 % (0.0-7.3) 12/06/18 06:31 Eos % (Auto) 1.5 % (0.0-4.3) 12/06/18 06:31 Baso % (Auto) 1.2 % (0.0-1.8) 12/06/18 06:31 Lymph # 3.0 K/mm3 (1.2-5.4) 12/06/18 06:31 [place] # 0.6 K/mm3 (0.0-0.8) 12/06/18 06:31 Eos # 0.1 K/mm3 (0.0-0.4) 12/06/18 06:31 Baso # 0.1 K/mm3 (0.0-0.1) 12/06/18 06:31 Seg Neutrophils % 58.7 % (40.0-70.0) 12/06/18 06:31 Seg Neutrophils # 5.4 K/mm3 (1.8-7.7) 12/06/18 06:31 ESR 31 mm/Hr (0-20) 12/05/18 00:49 PT 13.8 Sec. (12.2-14.9) 12/05/18 00:49 INR 1.00 (0.87-1.13) 12/05/18 00:49 APTT 30.0 Sec. (24.2-36.6) 12/05/18 00:49 Heparin Anti-Xa Level 0.48 U.I./ml (0.3-0.7) 12/05/18 07:45 Sodium 138 mmol/L (137-145) 12/06/18 06:31 Potassium 4.3 mmol/L (3.6-5.0) D 12/06/18 06:31 Chloride 104.8 mmol/L (98-107) 12/06/18 06:31 Carbon Dioxide 21 mmol/L (22-30) L 12/06/18 06:31 Anion Gap 17 mmol/L 12/06/18 06:31 BUN 9 mg/dL (7-17) 12/06/18 06:31 Creatinine 0.5 mg/dL (0.7-1.2) L 12/06/18 06:31 Estimated GFR > 60 ml/min 12/06/18 06:31 BUN/Creatinine Ratio 18 % 12/06/18 06:31 Glucose 102 mg/dL (65-100) H 12/06/18 06:31 Calcium 8.4 mg/dL (8.4-10.2) 12/06/18 06:31 Total Bilirubin 0.30 mg/dL (0.1-1.2) 12/06/18 06:31 AST 23 units/L (5-40) 12/06/18 06:31 ALT 16 units/L (7-56) 12/06/18 06:31 Alkaline Phosphatase 60 units/L (35-129) 12/06/18 06:31 Troponin T < 0.010 ng/mL (0.00-0.029) 12/04/18 22:37 C-Reactive Protein 1.50 mg/dL (0.00-1.30) H 12/05/18 00:49 Total Protein 6.6 g/dL (6.3-8.2) 12/06/18 06:31 Albumin 3.3 g/dL (3.9-5) L 12/06/18 06:31 Albumin/Globulin Ratio 1.0 % 12/06/18 06:31 HCG, Qual Negative (Negative) 12/04/18 19:25 Rheumatoid Factor < 10 IU/ml (0-13) 12/06/18 12:37 Influenza A (Rapid) Negative (Negative) 12/04/18 21:50 Influenza B (Rapid) Negative (Negative) 12/04/18 21:50 Group A Strep Rapid Negative (Negative) 12/04/18 21:50 Active Medications - Current Medications Current Medications: Generic Name Dose Route Start Last Admin Trade Name Freq PRN Reason Stop Dose Admin Acetaminophen 650 mg 12/05/18 02:03 Tylenol [place] Q4H PRN Fever >101 Enoxaparin Sodium 40 mg 12/06/18 22:00 12/06/18 21:39 Lovenox SUB-Q 40 mg QDAY@2200 ISA Administration Famotidine 20 mg 12/06/18 22:00 12/07/18 11:21 Pepcid PO Not Given BID ISA Sodium Chloride 1,000 mls @ 100 mls/hr 12/06/18 15:00 Nacl 0.9% 1000 Ml IV DIRECT ISA Ampicillin Sodium/Sulbactam Sodium 3 gm in 100 mls @ 200 mls/hr 12/06/18 16:00 12/07/18 15:30 Unasyn/Ns 3 Gm/100 Ml IV 200 mls/hr Q6HR ISA Administration Protocol Morphine Sulfate 2 mg 12/05/18 02:01 12/06/18 18:03 Morphine IV 2 mg Q3H PRN Administration Pain, Moderate (4-6) Ondansetron HCl 4 mg 12/05/18 02:02 Zofran IV Q8H PRN Nausea And Vomiting Oxycodone/Acetaminophen 1 tab 12/06/18 12:51 12/07/18 01:01 Percocet 5/325 PO 1 tab Q6H PRN Administration Pain, Moderate (4-6)
[2018-12-07] MEDS: MORPHINE IV PRN (22:02)
[2018-12-07] MEDS: LOVENOX SUB-Q SCH (22:03)
[2018-12-07] MEDS: ZOFRAN IV PRN (22:03)
[2018-12-08] MEDS: UNASYN/NS 3 GM/100 ML 3 GM/100 ML BAG IV SCH ×5 (00:31→23:13)
[2018-12-08] MEDS: PERCOCET 5/325 PO PRN ×4 (00:46→21:12)
[2018-12-08 06:03] LABS: Hematocrit 36.4 % (30.3-42.9); Hemoglobin 12.4 gm/dl (10.1-14.3)
[2018-12-08] MEDS: MORPHINE IV PRN ×4 (09:23→22:44)
[2018-12-08] MEDS: PEPCID PO SCH ×2 (09:23→21:15)
--- NOTE | 2018-12-08 13:29 | Progress Note ---
Assessment and Plan Assessment and plan: --Right-sided neck swelling; ?cellulitis/?lymphadenitis. Empiric antibiotics and cultures, ID following,cont Unasyn --Swelling of face and neck; continue current management Follow CTA chest to rule out possible SVC syndrome[unlikely] --Swelling around the right carotid sheath /possible vasculitis Vasculitis panel requested,no rheumatology service available. --History of fever prior to hosp visit; afebrile since adm --Hypokalemia ; corrected --Moderate malnutrition/hypoalbuminemia, supportive care --Obesity; BMI 38.3, weight reduction and medically stable Closely monitor the patient and adjust management as needed I discussed with the patient her condition and treatment plan through the la nguage line As well as her bilingual brother . Answered all her questions Patient needs dermatology evaluation, so he's not available Patient is hemodynamically stable, no indication for transfer Patient may see a lump receiver as outpatient upon discharge when stable Workup done so far: CT neck; abnormal density with slight marginal enhancement in the region of the right carotid sheath Inflammation / infectious processes, Carotid dissection cannot be ruled out[vascular evaluated no carotid dissection] CTA neck; no carotid or vertebral artery dissection is symmetric soft tissue within the carotid sheath surrounding the right carotid bifurcation may again be infectious or inflammatory[asymmetric lymphoid tissue which is normally present in carotid sheath] possible vasculopathy. CTA head; no intracranial stenosis large vessel occlusion [place] intact CTA chest; trace bilateral pleural effusion with adjacent area of compressive atelectasis Major vessels normal, No hilar, axillary, mediastinal adenopathy No PE, pneumothorax. No dissection, [id number] cardiomegaly[ECHO requested] Mildly complex renal cyst 2.1 cm left following following possible vasculitis possible vasculitis vasculitis panel ordered. Heart History Interval history: Patient seen and examined medical records reviewed No new events reported by the nursing staff Patient complains of neck pain, relieved by pain medications Alert awake oriented 3 Vital signs reviewed Hospitalist Physical - Constitutional Vitals: Temp Pulse Resp BP Pulse Ox 98.5 F 71 16 106/57 94 12/08/18 11:43 12/08/18 11:43 12/08/18 11:43 12/08/18 11:43 12/08/18 11:43 General appearance: Present: no acute distress, well-nourished, other (Facial swelling) - EENT Eyes: Present: PERRL, EOM intact ENT: other (right-sided neck swelling slightly improved, mild tenderness) - Neck Neck: Present: supple, normal ROM - Respiratory Respiratory effort: normal Respiratory: bilateral: diminished, negative: rales, rhonchi, wheezing - Cardiovascular Rhythm: regular Heart Sounds: Present: S1 & S2 - Extremities Extremities: no ischemia - Abdominal General gastrointestinal: soft, non-tender, non-distended, normal bowel sounds - Integumentary Integumentary: Present: clear, warm - Psychiatric Psychiatric: appropriate mood/affect, cooperative - Neurologic Neurologic: CNII-XII intact, moves all extremities Results - Labs CBC & Chem 7: 12/08/18 04:29 12/06/18 06:31 Labs: Laboratory Last Values WBC 9.3 K/mm3 (4.5-11.0) 12/06/18 06:31 RBC 4.22 M/mm3 (3.65-5.03) 12/06/18 06:31 Hgb 12.4 gm/dl (10.1-14.3) 12/08/18 04:29 Hct 36.4 % (30.3-42.9) 12/08/18 04:29 MCV 88 fl (79-97) 12/06/18 06:31 MCH 31 pg (28-32) 12/06/18 06:31 MCHC 35 % (30-34) H 12/06/18 06:31 RDW 13.8 % (13.2-15.2) 12/06/18 06:31 Plt Count 256 K/mm3 (140-440) 12/08/18 04:29 Lymph % (Auto) 32.5 % (13.4-35.0) 12/06/18 06:31 [place] % (Auto) 6.1 % (0.0-7.3) 12/06/18 06:31 Eos % (Auto) 1.5 % (0.0-4.3) 12/06/18 06:31 Baso % (Auto) 1.2 % (0.0-1.8) 12/06/18 06:31 Lymph # 3.0 K/mm3 (1.2-5.4) 12/06/18 06:31 [place] # 0.6 K/mm3 (0.0-0.8) 12/06/18 06:31 Eos # 0.1 K/mm3 (0.0-0.4) 12/06/18 06:31 Baso # 0.1 K/mm3 (0.0-0.1) 12/06/18 06:31 Seg Neutrophils % 58.7 % (40.0-70.0) 12/06/18 06:31 Seg Neutrophils # 5.4 K/mm3 (1.8-7.7) 12/06/18 06:31 ESR 31 mm/Hr (0-20) 12/05/18 00:49 PT 13.8 Sec. (12.2-14.9) 12/05/18 00:49 INR 1.00 (0.87-1.13) 12/05/18 00:49 APTT 30.0 Sec. (24.2-36.6) 12/05/18 00:49 Heparin Anti-Xa Level 0.48 U.I./ml (0.3-0.7) 12/05/18 07:45 Sodium 138 mmol/L (137-145) 12/06/18 06:31 Potassium 4.3 mmol/L (3.6-5.0) D 12/06/18 06:31 Chloride 104.8 mmol/L (98-107) 12/06/18 06:31 Carbon Dioxide 21 mmol/L (22-30) L 12/06/18 06:31 Anion Gap 17 mmol/L 12/06/18 06:31 BUN 9 mg/dL (7-17) 12/06/18 06:31 Creatinine 0.5 mg/dL (0.7-1.2) L 12/06/18 06:31 Estimated GFR > 60 ml/min 12/06/18 06:31 BUN/Creatinine Ratio 18 % 12/06/18 06:31 Glucose 102 mg/dL (65-100) H 12/06/18 06:31 Calcium 8.4 mg/dL (8.4-10.2) 12/06/18 06:31 Total Bilirubin 0.30 mg/dL (0.1-1.2) 12/06/18 06:31 AST 23 units/L (5-40) 12/06/18 06:31 ALT 16 units/L (7-56) 12/06/18 06:31 Alkaline Phosphatase 60 units/L (35-129) 12/06/18 06:31 Troponin T < 0.010 ng/mL (0.00-0.029) 12/04/18 22:37 C-Reactive Protein 1.50 mg/dL (0.00-1.30) H 12/05/18 00:49 Total Protein 6.6 g/dL (6.3-8.2) 12/06/18 06:31 Albumin 3.3 g/dL (3.9-5) L 12/06/18 06:31 Albumin/Globulin Ratio 1.0 % 12/06/18 06:31 HCG, Qual Negative (Negative) 12/04/18 19:25 Rheumatoid Factor < 10 IU/ml (0-13) 12/06/18 12:37 Influenza A (Rapid) Negative (Negative) 12/04/18 21:50 Influenza B (Rapid) Negative (Negative) 12/04/18 21:50 Group A Strep Rapid Negative (Negative) 12/04/18 21:50 Active Medications - Current Medications Current Medications: Generic Name Dose Route Start Last Admin Trade Name Freq PRN Reason Stop Dose Admin Acetaminophen 650 mg 12/05/18 02:03 Tylenol [place] Q4H PRN Fever >101 Enoxaparin Sodium 40 mg 12/06/18 22:00 12/07/18 22:03 Lovenox SUB-Q 40 mg QDAY@2200 ISA Administration Famotidine 20 mg 12/06/18 22:00 12/08/18 09:23 Pepcid PO 20 mg BID ISA Administration Sodium Chloride 1,000 mls @ 100 mls/hr 12/06/18 15:00 Nacl 0.9% 1000 Ml IV DIRECT ISA Ampicillin Sodium/Sulbactam Sodium 3 gm in 100 mls @ 200 mls/hr 12/06/18 16:00 12/08/18 12:53 Unasyn/Ns 3 Gm/100 Ml IV 200 mls/hr Q6HR ISA Administration Protocol Morphine Sulfate 2 mg 12/05/18 02:01 12/08/18 12:57 Morphine IV 2 mg Q3H PRN Administration Pain, Moderate (4-6) Ondansetron HCl 4 mg 12/05/18 02:02 12/07/18 22:03 Zofran IV 4 mg Q8H PRN Administration Nausea And Vomiting Oxycodone/Acetaminophen 1 tab 04/12/19 12:51 12/08/18 11:23 Percocet 5/325 PO 1 tab Q6H PRN Administration Pain, Moderate (4-6)
--- NOTE | 2018-12-08 13:55 | Event Note ---
Date: 12/08/18 Right femoral central line placement procedure. I was asked by the hospitalist to place a central line for Miss Mcarthur for fluid resuscitation, antibiotic and a CT with IV contrast. Written consent obtained. Timeout performed, patient placed on the monitor. Mask, gown, gloves and sterile drape applied. Right femoral area cleaned with his chlorhexidine and iodine. Lidocaine 2% used. A triple lumen femoral central line placed with no complication. Patient tolerated procedure well.
--- NOTE | 2018-12-08 16:10 | Cat Scan Report ---
PROCEDURE: CT ANGIO CHEST TECHNIQUE: TECHNIQUE: Computerized tomographic angiography of the chest was performed after the IV i njection of iodinated nonionic contrast including image processing. The image data was postprocessed using 2-dimensional multiplanar reformatted (MPR) and 3-dimensional (MIP and/or volume rendered) irene hniques. Automated exposure control, adjustment of mA and/or kV according to patient size, or iterati ve reconstruction dose optimization techniques were utilized. Coronal and sagittal reconstructed imag ing provided. CT DOSE LENGTH PRODUCT: 1960.8 mGy-cm. HISTORY: swelling of the neck face evaluate for SVC syndrome COMPARISONS: None currently available. FINDINGS: Trace bilateral pleural effusions with adjacent areas of compressive atelectasis. No pneumothorax. No large consolidation. No effusion. No endobronchial lesions. Main pulmonary artery is unremarkable. No pulmonary embolism. No aneurysm. No dissection. Major branch arteries are within normal limits. No significant atheroscle rotic disease. Gkik-yy-exkawfba cardiomegaly. No pericardial effusion. No obvious coronary artery disease. SVC appears grossly unremarkable. Decreased contrast in the SVC probably represent mixing of noncontr ast blood from the brachiocephalic veins. Internal jugular veins are patent with contrast. There is no axillary adenopathy. There is no hilar or mediastinal mass or adenopathy. Limited images of the thyroid gland are unremarkable. Limited images of the esophagus are unremarkable. Mildly complex left renal cyst measures 2.1 cm. Bones: No suspicious osseous lesions on this limited examination of the skeleton. Metastatic disease better evaluated with bone scan. Degenerative changes are present in the spine. IMPRESSION: * Trace bilateral pleural effusions with adjacent areas of minimal compressive atelectasis. * Ntuq-ui-qxizyknl cardiomegaly. * Mildly complex left renal cyst. This document is electronically signed by Logan Whaley MD., December 08 2018 04:09:07 PM ET
[2018-12-08] MEDS ORDERED: TYLENOL PO PRN (17:45)
[2018-12-08] MEDS: LOVENOX SUB-Q SCH (21:13)
[2018-12-09] MEDS: ZOFRAN IV PRN (04:03)
[2018-12-09] MEDS: MORPHINE IV PRN ×3 (04:03→16:28)
[2018-12-09 05:36] LABS: Basophils % (Auto) 0.5 % (0.0-1.8); Eosinophils # (Auto) 0.1 K/mm3 (0.0-0.4); Eosinophils % (Auto) 0.7 % (0.0-4.3); Hematocrit 36.3 % (30.3-42.9); Hemoglobin 12.5 gm/dl (10.1-14.3); Lymphocytes # (Auto) 1.8 K/mm3 (1.2-5.4); Lymphocytes % (Auto) 22.9 % (13.4-35.0); Mean Corpuscular HGB Conc 35 % (30-34); Mean Corpuscular Volume 89 fl (79-97); Monocytes # (Auto) 0.4 K/mm3 (0.0-0.8); Monocytes % (Auto) 5.5 % (0.0-7.3); Platelet Count 254 K/mm3 (140-440); Red Blood Count 4.09 M/mm3 (3.65-5.03); Red Cell Distribution Width 13.7 % (13.2-15.2)
[2018-12-09] MEDS: UNASYN/NS 3 GM/100 ML 3 GM/100 ML BAG IV SCH (05:48)
[2018-12-09 05:57] LABS: Alanine Aminotransferase 73 units/L (7-56); Albumin 3.3 g/dL (3.9-5); BUN/Creatinine Ratio 16; Blood Urea Nitrogen 8 mg/dL (7-17); Calcium 8.5 mg/dL (8.4-10.2); Hemolysis Index 6
[2018-12-09 06:14] LABS: Erythrocyte Sedimentation Rate 29 mm/Hr (0-20)
[2018-12-09] MEDS: PEPCID PO SCH ×3 (08:55→21:44)
--- NOTE | 2018-12-09 10:37 | Progress Note ---
Assessment and Plan Cultures: 12/04/2018 throat culture: negative 12/05/2018 ESR: 31, CRP: 1.5 12/05/2018 Influenza rapid: negative A/P: 39-year-old female (Citizen Of [place]-speaking only, history obtained through the help of [employer] seismic interpreter phone) with no significant past medical history who is originally from [place], moved to the about 7 years ago) admitted with: 1) Unilateral (right) neck swelling, tenderness: with CT evidence of carotid sheath enhancement. There is no leukocytosis or fever. No enhancement/thrombosis of the right internal jugular vein to suggest any septic thrombophlebitis/Lemierre's syndrome. Rather acute onset, hence, infectious etiology possible. Autoimmune conditions possible too. Given location and proximity to the vessels, reasonable to treat empirically with IV abx CT Chest -Trace bilateral pleural effusions with adjacent areas of minimal compressive atelectasis. Fbak-se-vtgqleuo cardiomegaly. Mildly complex left renal cyst. Recs: f/u Blood cultures Discontinue Unasyn f/u C3, C4, JAMES, ds-DNA, RA, ANCA panel continue to monitor temperature and WBC Shelbie Phan NP [facility] M: [id number] O:[phone] Subjective Date of service: 12/09/18 Interval history: Patient seen and examined. Communication via interpretation line, Citizen [place] speaking only. Stated that she was having increased neck and head pain. No fevers or SOB. Objective - Exam Narrative Exam: Constitutional: Alert, cooperative. +neck and head pain Head, Ears, Nose: Normocephalic, atraumatic. External ears, nose normal Eyes: Conjunctivae/corneas clear. No icterus. No ptosis. Neck: Supple, no meningeal signs Oral: dentition fair, no thrush Cardiovascular: S1, S2 normal. Respiratory: Good air entry, clear to auscultation bilaterally GI: Soft, non-tender; bowel sounds normal. No peritoneal signs Musculoskeletal: No pedal edema, no cyanosis. Skin: No rash or abscess Hem/Lymphatic: No palpable cervical or supraclavicular nodes. No lymphangitis Psych: Mood ok. Affect normal Neurological: Awake, alert, oriented. No gross abnormality - Constitutional Vitals: Vital Signs Temp Pulse Resp BP Pulse Ox 98.4 F 74 20 105/62 92 12/08/18 23:15 12/09/18 05:36 12/09/18 05:36 12/09/18 05:36 12/09/18 05:36 Temperature -Last 24 Hours Temperature 98.4 F Temperature 99.1 F Temperature 98.8 F Temperature 98.5 F - Labs CBC & Chem 7: 12/09/18 04:52 12/09/18 04:52 Labs: Abnormal lab results 12/09/18 12/09/18 Range/Units 04:52 04:52 MCHC 35 H (30-34) % Seg Neutrophils % 70.4 H (40.0-70.0) % Potassium 3.5 L (3.6-5.0) mmol/L Creatinine 0.5 L (0.7-1.2) mg/dL AST 51 H (5-40) units/L ALT 73 H (7-56) units/L Albumin 3.3 L (3.9-5) g/dL
[2018-12-09] MEDS ORDERED: K-DUR PO ONE (11:00)
--- NOTE | 2018-12-09 11:09 | Progress Note ---
Assessment and Plan Assessment and plan: --Right-sided neck swelling; ?cellulitis/?lymphadenitis. s/pEmpiric antibiotic Unasyn , cultures neg to date, ID advised to d/c Unasyn.Unlikely infectious . Autoimmune w/u in progress --Swelling of face and neck; continue current management CTA chest neg for vascular abnormality,no lymphadenopathy Mild pleural effusion,possible serositis --Swelling around the right carotid sheath /possible vasculitis Vasculitis panel requested,no rheumatology service available. Patient would f/u ssds mk 2 advanced operator upon dc when stable. --History of fever prior to hosp visit; afebrile since adm --Hypokalemia ; corrected --Moderate malnutrition/hypoalbuminemia, supportive care --Obesity; BMI 38.3, weight reduction and medically stable Closely monitor the patient and adjust management as needed I discussed with the patient her condition and treatment plan through the language line As well as her bilingual brother . Answered all her questions continue current management,Possible discharge in 1-2 days if stable. Workup done so far: CT neck; abnormal density with slight marginal enhancement in the region of the right carotid sheath Inflammation / infectious processes, Carotid dissection cannot be ruled out[vascular evaluated no carotid dissection] CTA neck; no carotid or vertebral artery dissection is symmetric soft tissue within the carotid sheath surrounding the right carotid bifurcation may again be infectious or inflammatory[asymmetric lymphoid tissue which is normally present in carotid sheath] possible vasculopathy. CTA head; no intracranial stenosis large vessel occlusion [place] intact CTA chest; trace bilateral pleural effusion with adjacent area of compressive atelectasis Major vessels normal, No hilar, axillary, mediastinal adenopathy No PE, pneumothorax. No dissection, szsl-mf-[id number] cardiomegaly[ECHO requested] Mildly complex renal cyst 2.1 cm left possible vasculitis, vasculitis panel ordered. History Interval history: Conversation through interpretation through a bilingual family member Patient seen and examined , Patient feels slightly better Neck pain and facial swelling slightly improved. Vital signs noted Hospitalist Physical - Constitutional Vitals: Temp Pulse Resp BP Pulse Ox 98.4 F 74 20 105/62 92 12/08/18 23:15 12/09/18 05:36 12/09/18 05:36 12/09/18 05:36 12/09/18 05:36 General appearance: Present: no acute distress, well-nourished, other (Facial swelling) - EENT Eyes: Present: PERRL, EOM intact - Neck Neck: Present: supple, normal ROM - Respiratory Respiratory effort: normal Respiratory: negative: rales, rhonchi, wheezing - Cardiovascular Rhythm: regular Heart Sounds: Present: S1 & S2 - Extremities Extremities: no ischemia, No edema - Abdominal General gastrointestinal: soft, non-tender, non-distended, normal bowel sounds - Integumentary Integumentary: Present: clear, warm - Psychiatric Psychiatric: appropriate mood/affect, cooperative - Neurologic Neurologic: CNII-XII intact, moves all extremities Results - Labs CBC & Chem 7: 12/11/18 00:35 12/09/18 04:52 Labs: Laboratory Last Values WBC 8.0 K/mm3 (4.5-11.0) 12/09/18 04:52 RBC 4.09 M/mm3 (3.65-5.03) 12/09/18 04:52 Hgb 12.5 gm/dl (10.1-14.3) 12/09/18 04:52 Hct 36.3 % (30.3-42.9) 12/09/18 04:52 MCV 89 fl (79-97) 12/09/18 04:52 MCH 31 pg (28-32) 12/09/18 04:52 MCHC 35 % (30-34) H 12/09/18 04:52 RDW 13.7 % (13.2-15.2) 12/09/18 04:52 Plt Count 254 K/mm3 (140-440) 12/09/18 04:52 Lymph % (Auto) 22.9 % (13.4-35.0) 12/09/18 04:52 [place] % (Auto) 5.5 % (0.0-7.3) 12/09/18 04:52 Eos % (Auto) 0.7 % (0.0-4.3) 12/09/18 04:52 Baso % (Auto) 0.5 % (0.0-1.8) 12/09/18 04:52 Lymph # 1.8 K/mm3 (1.2-5.4) 12/09/18 04:52 [place] # 0.4 K/mm3 (0.0-0.8) 12/09/18 04:52 Eos # 0.1 K/mm3 (0.0-0.4) 12/09/18 04:52 Baso # 0.0 K/mm3 (0.0-0.1) 12/09/18 04:52 Seg Neutrophils % 70.4 % (40.0-70.0) H 12/09/18 04:52 Seg Neutrophils # 5.6 K/mm3 (1.8-7.7) 12/09/18 04:52 ESR 29 mm/Hr (0-20) 12/09/18 04:52 PT 13.8 Sec. (12.2-14.9) 12/05/18 00:49 INR 1.00 (0.87-1.13) 12/05/18 00:49 APTT 30.0 Sec. (24.2-36.6) 12/05/18 00:49 Heparin Anti-Xa Level 0.48 U.I./ml (0.3-0.7) 12/05/18 07:45 Sodium 140 mmol/L (137-145) 12/09/18 04:52 Potassium 3.5 mmol/L (3.6-5.0) L 12/09/18 04:52 Chloride 102.8 mmol/L (98-107) 12/09/18 04:52 Carbon Dioxide 25 mmol/L (22-30) 12/09/18 04:52 Anion Gap 16 mmol/L 12/09/18 04:52 BUN 8 mg/dL (7-17) 12/09/18 04:52 Creatinine 0.5 mg/dL (0.7-1.2) L 12/09/18 04:52 Estimated GFR > 60 ml/min 12/09/18 04:52 BUN/Creatinine Ratio 16 % 12/09/18 04:52 Glucose 99 mg/dL (65-100) 12/09/18 04:52 Calcium 8.5 mg/dL (8.4-10.2) 12/09/18 04:52 Total Bilirubin 0.40 mg/dL (0.1-1.2) 12/09/18 04:52 AST 51 units/L (5-40) H 12/09/18 04:52 ALT 73 units/L (7-56) H 12/09/18 04:52 Alkaline Phosphatase 66 units/L (35-129) 12/09/18 04:52 Troponin T < 0.010 ng/mL (0.00-0.029) 12/04/18 22:37 C-Reactive Protein 1.50 mg/dL (0.00-1.30) H 12/05/18 00:49 Total Protein 6.3 g/dL (6.3-8.2) 12/09/18 04:52 Albumin 3.3 g/dL (3.9-5) L 12/09/18 04:52 Albumin/Globulin Ratio 1.1 % 12/09/18 04:52 HCG, Qual Negative (Negative) 12/04/18 19:25 Rheumatoid Factor < 10 IU/ml (0-13) 12/06/18 12:37 Influenza A (Rapid) Negative (Negative) 12/04/18 21:50 Influenza B (Rapid) Negative (Negative) 12/04/18 21:50 Group A Strep Rapid Negative (Negative) 12/04/18 21:50 Active Medications - Current Medications Current Medications: Generic Name Dose Route Start Last Admin Trade Name Freq PRN Reason Stop Dose Admin Acetaminophen 650 mg 12/08/18 17:45 12/08/18 18:13 Tylenol PO 650 mg Q4H PRN Administration Pain, Mild (1-3) Enoxaparin Sodium 40 mg 12/06/18 22:00 12/08/18 21:13 Lovenox SUB-Q 40 mg QDAY@2200 ISA Administration Famotidine 20 mg 12/06/18 22:00 12/09/18 09:17 Pepcid PO Not Given BID [facility] Sodium Chloride 1,000 mls @ 100 mls/hr 12/06/18 15:00 Nacl 0.9% 1000 Ml IV DIRECT [facility] Ampicillin Sodium/Sulbactam Sodium 3 gm in 100 mls @ 200 mls/hr 12/06/18 16:00 12/09/18 05:48 Unasyn/Ns 3 Gm/100 Ml IV 200 mls/hr Q6HR ISA Administration Protocol Morphine Sulfate 2 mg 12/05/18 02:01 12/09/18 08:55 Morphine IV 2 mg Q3H PRN Administration Pain, Moderate (4-6) Ondansetron HCl 4 mg 12/05/18 02:02 12/09/18 04:03 Zofran IV 4 mg Q8H PRN Administration Nausea And Vomiting Oxycodone/Acetaminophen 1 tab 12/06/18 12:51 12/08/18 21:12 Percocet 5/325 PO 1 tab Q6H PRN Administration Pain, Moderate (4-6)
[2018-12-09] MEDS: PERCOCET 5/325 PO PRN ×2 (12:17→21:47)
[2018-12-09] MEDS: LOVENOX SUB-Q SCH (21:44)
[2018-12-10] MEDS: PERCOCET 5/325 PO PRN ×2 (03:53→14:47)
[2018-12-10] MEDS: MORPHINE IV PRN ×3 (05:56→21:29)
[2018-12-10 06:22] LABS: Hematocrit 33.9 % (30.3-42.9); Hemoglobin 11.6 gm/dl (10.1-14.3)
--- NOTE | 2018-12-10 08:57 | Progress Note ---
Assessment and Plan Cultures: 12/04/2018 throat culture: negative 12/05/2018 ESR: 31, CRP: 1.5 12/05/2018 Influenza rapid: negative 12/06/2018 Blood: no growth A/P: 39-year-old female ([place]-speaking only, history obtained through the help of [employer] radiation technician phone) with no significant past medical history who is originally from [place], moved to the about 7 years ago) admitted with: 1) Unilateral (right) neck swelling, tenderness: with CT evidence of carotid sheath enhancement. There is no leukocytosis or fever. No enhancement/thrombosis of the right internal jugular vein to suggest any septic thrombophlebitis/Lemierre's syndrome. CT images does not reveal septic emboli. Showed trace bilateral pleural effusions, suggestive of possible serositis, hence autoimmune disease remains a concern. No evidence of infectious etiology. Unasyn discontinued. Autoimmune panel pending. RH Factor: less than 10 Recs: f/u C3, C4, JAMES, ds-DNA, RA, ANCA panel CBC ordered for tomorrow Monitor off antibiotics [facility] M: [id number] O:[phone] Subjective Date of service: 12/10/18 Interval history: Patient seen and examined. Communication via interpretation line, [place] speaking only. Continues to have right side neck pain. No fevers. Objective - Exam Narrative Exam: Constitutional: Alert, cooperative. +neck and head pain + minor facial rash ?butterfly Head, Ears, Nose: Normocephalic, atraumatic. External ears, nose normal Eyes: Conjunctivae/corneas clear. No icterus. No ptosis. Neck: Supple, no meningeal signs Oral: dentition fair, no thrush Cardiovascular: S1, S2 normal. Respiratory: Good air entry, clear to auscultation bilaterally GI: Soft, non-tender; bowel sounds normal. No peritoneal signs Musculoskeletal: No pedal edema, no cyanosis. Skin: No rash or abscess Hem/Lymphatic: No palpable cervical or supraclavicular nodes. No lymphangitis Psych: Mood ok. Affect normal Neurological: Awake, alert, oriented. No gross abnormality - Constitutional Vitals: Vital Signs Temp Pulse Resp BP Pulse Ox 98.1 F 53 L 20 92/47 91 12/10/18 06:17 12/10/18 06:17 12/10/18 06:26 12/10/18 06:17 12/10/18 06:17 Temperature -Last 24 Hours Temperature 98.1 F Temperature 98.0 F Temperature 98.1 F Temperature 98.3 F - Labs CBC & Chem 7: 12/10/18 04:36 12/09/18 04:52
--- NOTE | 2018-12-10 10:21 | Progress Note ---
Assessment and Plan Assessment and plan: Right-sided neck swelling; ?cellulitis/?lymphadenitis. No evidence of infectious etiology. ID following --CT neck; abnormal density with slight marginal enhancement in the region of the right carotid sheath Inflammation / infectious processes, Carotid dissection cannot be ruled out[vascular evaluated no carotid dissection] --CTA chest; trace bilateral pleural effusion with adjacent area of compressive atelectasis Major vessels normal, No hilar, axillary, mediastinal adenopathy No PE, pneumothorax. No dissection, [id number] cardiomegaly[ECHO requested] --CT images does not reveal septic emboli. Showed trace bilateral pleural effusions, suggestive of possible serositis, hence autoimmune disease remains a concern. No evidence of infectious etiology. Unasyn discontinued. Autoimmune panel pending. --History of fever prior to hosp visit; afebrile since adm --Hypokalemia ; corrected --Moderate malnutrition/hypoalbuminemia, supportive care --Obesity; BMI 38.3, weight reduction and medically stable History Interval history: No new issues overnight. Patient complains of right-sided neck pain that has improved. Hospitalist Physical - Constitutional Vitals: Temp Pulse Resp BP Pulse Ox 98.1 F 53 L 20 92/47 91 12/10/18 06:17 12/10/18 06:17 12/10/18 06:26 12/10/18 06:17 12/10/18 06:17 General appearance: Present: no acute distress, well-nourished, other (Facial swelling) - EENT Eyes: Present: PERRL, EOM intact ENT: hearing intact, clear oral mucosa, dentition normal - Neck Neck: Present: supple, normal ROM - Respiratory Respiratory effort: normal Respiratory: bilateral: CTA - Cardiovascular Rhythm: regular Heart Sounds: Present: S1 & S2. Absent: gallop, rub - Extremities Extremities: no ischemia, No edema, Full ROM - Abdominal General gastrointestinal: soft, non-tender, non-distended, normal bowel sounds - Integumentary Integumentary: Present: clear, warm, dry - Neurologic Neurologic: CNII-XII intact, moves all extremities Results - Labs CBC & Chem 7: 12/10/18 04:36 12/09/18 04:52 Labs: Laboratory Last Values WBC 8.0 K/mm3 (4.5-11.0) 12/09/18 04:52 RBC 4.09 M/mm3 (3.65-5.03) 12/09/18 04:52 Hgb 11.6 gm/dl (10.1-14.3) 12/10/18 04:36 Hct 33.9 % (30.3-42.9) 12/10/18 04:36 MCV 89 fl (79-97) 12/09/18 04:52 MCH 31 pg (28-32) 12/09/18 04:52 MCHC 35 % (30-34) H 12/09/18 04:52 RDW 13.7 % (13.2-15.2) 12/09/18 04:52 Plt Count 225 K/mm3 (140-440) 12/10/18 04:36 Lymph % (Auto) 22.9 % (13.4-35.0) 12/09/18 04:52 [place] % (Auto) 5.5 % (0.0-7.3) 12/09/18 04:52 Eos % (Auto) 0.7 % (0.0-4.3) 12/09/18 04:52 Baso % (Auto) 0.5 % (0.0-1.8) 12/09/18 04:52 Lymph # 1.8 K/mm3 (1.2-5.4) 12/09/18 04:52 [place] # 0.4 K/mm3 (0.0-0.8) 12/09/18 04:52 Eos # 0.1 K/mm3 (0.0-0.4) 12/09/18 04:52 Baso # 0.0 K/mm3 (0.0-0.1) 12/09/18 04:52 Seg Neutrophils % 70.4 % (40.0-70.0) H 12/09/18 04:52 Seg Neutrophils # 5.6 K/mm3 (1.8-7.7) 12/09/18 04:52 ESR 29 mm/Hr (0-20) 12/09/18 04:52 PT 13.8 Sec. (12.2-14.9) 12/05/18 00:49 INR 1.00 (0.87-1.13) 12/05/18 00:49 APTT 30.0 Sec. (24.2-36.6) 12/05/18 00:49 Heparin Anti-Xa Level 0.48 U.I./ml (0.3-0.7) 12/05/18 07:45 Sodium 140 mmol/L (137-145) 12/09/18 04:52 Potassium 3.5 mmol/L (3.6-5.0) L 12/09/18 04:52 Chloride 102.8 mmol/L (98-107) 12/09/18 04:52 Carbon Dioxide 25 mmol/L (22-30) 12/09/18 04:52 Anion Gap 16 mmol/L 12/09/18 04:52 BUN 8 mg/dL (7-17) 12/09/18 04:52 Creatinine 0.5 mg/dL (0.7-1.2) L 12/09/18 04:52 Estimated GFR > 60 ml/min 12/09/18 04:52 BUN/Creatinine Ratio 16 % 12/09/18 04:52 Glucose 99 mg/dL (65-100) 12/09/18 04:52 Calcium 8.5 mg/dL (8.4-10.2) 12/09/18 04:52 Total Bilirubin 0.40 mg/dL (0.1-1.2) 12/09/18 04:52 AST 51 units/L (5-40) H 12/09/18 04:52 ALT 73 units/L (7-56) H 12/09/18 04:52 Alkaline Phosphatase 66 units/L (35-129) 12/09/18 04:52 Troponin T < 0.010 ng/mL (0.00-0.029) 12/04/18 22:37 C-Reactive Protein 1.50 mg/dL (0.00-1.30) H 12/05/18 00:49 Total Protein 6.3 g/dL (6.3-8.2) 12/09/18 04:52 Albumin 3.3 g/dL (3.9-5) L 12/09/18 04:52 Albumin/Globulin Ratio 1.1 % 12/09/18 04:52 HCG, Qual Negative (Negative) 12/04/18 19:25 Rheumatoid Factor < 10 IU/ml (0-13) 12/06/18 12:37 Influenza A (Rapid) Negative (Negative) 12/04/18 21:50 Influenza B (Rapid) Negative (Negative) 12/04/18 21:50 Group A Strep Rapid Negative (Negative) 12/04/18 21:50 Active Medications - Current Medications Current Medications: Generic Name Dose Route Start Last Admin Trade Name Freq PRN Reason Stop Dose Admin Acetaminophen 650 mg 12/08/18 17:45 12/08/18 18:13 Tylenol PO 650 mg Q4H PRN Administration Pain, Mild (1-3) Enoxaparin Sodium 40 mg 12/06/18 22:00 12/09/18 21:44 Lovenox SUB-Q 40 mg QDAY@2200 ISA Administration Famotidine 20 mg 12/06/18 22:00 12/09/18 21:44 Pepcid PO 20 mg BID ISA Administration Sodium Chloride 1,000 mls @ 100 mls/hr 12/06/18 15:00 Nacl 0.9% 1000 Ml IV DIRECT ISA Morphine Sulfate 2 mg 12/05/18 02:01 12/10/18 05:56 Morphine IV 2 mg Q3H PRN Administration Pain, Moderate (4-6) Ondansetron HCl 4 mg 12/05/18 02:02 12/09/18 04:03 Zofran IV 4 mg Q8H PRN Administration Nausea And Vomiting Oxycodone/Acetaminophen 1 tab 12/06/18 12:51 12/10/18 03:53 Percocet 5/325 PO 1 tab Q6H PRN Administration Pain, Moderate (4-6)
[2018-12-10] MEDS: PEPCID PO SCH ×2 (10:46→21:29)
[2018-12-10] MEDS: LOVENOX SUB-Q SCH (21:28)
[2018-12-11 01:03] LABS: Basophils % (Auto) 0.5 % (0.0-1.8); Eosinophils # (Auto) 0.2 K/mm3 (0.0-0.4); Eosinophils % (Auto) 2.2 % (0.0-4.3); Hematocrit 36.2 % (30.3-42.9); Hemoglobin 12.4 gm/dl (10.1-14.3); Lymphocytes # (Auto) 2.5 K/mm3 (1.2-5.4); Mean Corpuscular HGB Conc 34 % (30-34); Mean Corpuscular Volume 90 fl (79-97); Monocytes # (Auto) 0.4 K/mm3 (0.0-0.8); Monocytes % (Auto) 5.1 % (0.0-7.3); Platelet Count 248 K/mm3 (140-440); Red Blood Count 4.03 M/mm3 (3.65-5.03); Red Cell Distribution Width 13.9 % (13.2-15.2)
[2018-12-11] MEDS: PERCOCET 5/325 PO PRN ×2 (06:18→18:47)
--- NOTE | 2018-12-11 08:48 | Progress Note ---
Assessment and Plan Cultures: 12/04/2018 throat culture: negative 12/05/2018 ESR: 31, CRP: 1.5 12/05/2018 Influenza rapid: negative 12/06/2018 Blood: no growth A/P: 39-year-old female (Chinese-speaking only, history obtained through the help of [employer] label maker phone) with no significant past medical history who is originally from [place], moved to the about 7 years ago) admitted with: 1) Unilateral (right) neck swelling, tenderness: with CT evidence of carotid sheath enhancement. There is no leukocytosis or fever. No enhancement/thrombosis of the right internal jugular vein to suggest any septic thrombophlebitis/Lemierre's syndrome. CT images does not reveal septic emboli. Showed trace bilateral pleural effusions, suggestive of possible serositis, hence autoimmune disease remains a concern. No evidence of infectious etiology. Unasyn discontinued. Autoimmune panel pending. RH Factor: less than 10 C3/C4: normal range TTE: no valvular vegetation Recs: f/u JAMES, ds-DNA, RA, ANCA bun panner off antibiotics f/u HIV rapid results Shelbie Phan NP [facility] M: [phone] O:[phone] Subjective Date of service: 12/11/18 Interval history: Patient seen and examined. Communication via interpretation line, Chinese speaking only. Right side neck pain improved. Denies SOB or rash. No fevers. Objective - Exam Narrative Exam: Constitutional: Alert, cooperative No acute distress Head, Ears, Nose: Normocephalic, atraumatic. External ears, nose normal Eyes: Conjunctivae/corneas clear. No icterus. No ptosis. Neck: Supple, no meningeal signs Oral: dentition fair, no thrush Cardiovascular: S1, S2 normal. Respiratory: Good air entry, clear to auscultation bilaterally GI: Soft, non-tender; bowel sounds normal. No peritoneal signs Musculoskeletal: No pedal edema, no cyanosis. Skin: No rash or abscess Hem/Lymphatic: No palpable cervical or supraclavicular nodes. No lymphangitis Psych: Mood ok. Affect normal Neurological: Awake, alert, oriented. No gross abnormality - Constitutional Vitals: Vital Signs Temp Pulse Resp BP Pulse Ox 98.2 F 65 20 107/64 94 12/11/18 05:47 12/11/18 05:47 12/11/18 06:18 12/11/18 05:47 12/11/18 05:47 Temperature -Last 24 Hours Temperature 98.2 F Temperature 98.2 F Temperature 97.9 F Temperature 97.8 F - Labs CBC & Chem 7: 12/11/18 00:35 12/09/18 04:52
[2018-12-11] MEDS: PEPCID PO SCH ×2 (10:32→22:23)
--- NOTE | 2018-12-11 11:03 | Progress Note ---
Assessment and Plan Assessment and plan: Right-sided neck swelling; ?cellulitis/?lymphadenitis/? Vasculitis Check sedimentation rate. Autoimmune panel pending. No evidence of infectious etiology. ID following Since infectious etiology has been ruled out per ID, we will try a trial of steroids. --CT neck; abnormal density with slight marginal enhancement in the region of the right carotid sheath Inflammation / infectious processes, Carotid dissection cannot be ruled out[vascular evaluated no carotid dissection] --CTA chest; trace bilateral pleural effusion with adjacent area of compressive atelectasis Major vessels normal, No hilar, axillary, mediastinal adenopathy No PE, pneumothorax. No dissection, [id number] cardiomegaly[ECHO requested] --CT images does not reveal septic emboli. Showed trace bilateral pleural effusions, suggestive of possible serositis, hence autoimmune disease remains a concern. No evidence of infectious etiology. Unasyn discontinued. --Hypokalemia ; corrected --Moderate malnutrition/hypoalbuminemia, supportive care --Obesity; BMI 38.3, weight reduction and medically stable History Interval history: No new issues overnight. Patient complains of right-sided neck pain and headache that appears more severe Hospitalist Physical - Constitutional Vitals: Temp Pulse Resp BP Pulse Ox 98.2 F 65 20 107/64 94 12/11/18 05:47 12/11/18 05:47 12/11/18 06:18 12/11/18 05:47 12/11/18 05:47 General appearance: Present: no acute distress, well-nourished, other (Facial swelling) - EENT Eyes: Present: PERRL, EOM intact ENT: hearing intact, clear oral mucosa, dentition normal - Neck Neck: Present: supple, normal ROM - Respiratory Respiratory effort: normal Respiratory: bilateral: CTA - Cardiovascular Rhythm: regular Heart Sounds: Present: S1 & S2. Absent: gallop, rub - Extremities Extremities: no ischemia, No edema, Full ROM - Abdominal General gastrointestinal: soft, non-tender, non-distended, normal bowel sounds - Integumentary Integumentary: Present: clear, warm, dry - Neurologic Neurologic: CNII-XII intact, moves all extremities Results - Labs CBC & Chem 7: 12/11/18 00:35 12/09/18 04:52 Labs: Laboratory Last Values WBC 7.8 K/mm3 (4.5-11.0) 12/11/18 00:35 RBC 4.03 M/mm3 (3.65-5.03) 12/11/18 00:35 Hgb 12.4 gm/dl (10.1-14.3) 12/11/18 00:35 Hct 36.2 % (30.3-42.9) 12/11/18 00:35 MCV 90 fl (79-97) 12/11/18 00:35 MCH 31 pg (28-32) 12/11/18 00:35 MCHC 34 % (30-34) 12/11/18 00:35 RDW 13.9 % (13.2-15.2) 12/11/18 00:35 Plt Count 248 K/mm3 (140-440) 12/11/18 00:35 Lymph % (Auto) 32.0 % (13.4-35.0) 12/11/18 00:35 [place] % (Auto) 5.1 % (0.0-7.3) 12/11/18 00:35 Eos % (Auto) 2.2 % (0.0-4.3) 12/11/18 00:35 Baso % (Auto) 0.5 % (0.0-1.8) 12/11/18 00:35 Lymph # 2.5 K/mm3 (1.2-5.4) 12/11/18 00:35 [place] # 0.4 K/mm3 (0.0-0.8) 12/11/18 00:35 Eos # 0.2 K/mm3 (0.0-0.4) 12/11/18 00:35 Baso # 0.0 K/mm3 (0.0-0.1) 12/11/18 00:35 Seg Neutrophils % 60.2 % (40.0-70.0) 12/11/18 00:35 Seg Neutrophils # 4.7 K/mm3 (1.8-7.7) 12/11/18 00:35 ESR 29 mm/Hr (0-20) 12/09/18 04:52 PT 13.8 Sec. (12.2-14.9) 12/05/18 00:49 INR 1.00 (0.87-1.13) 12/05/18 00:49 APTT 30.0 Sec. (24.2-36.6) 12/05/18 00:49 Heparin Anti-Xa Level 0.48 U.I./ml (0.3-0.7) 12/05/18 07:45 Sodium 140 mmol/L (137-145) 12/09/18 04:52 Potassium 3.5 mmol/L (3.6-5.0) L 12/09/18 04:52 Chloride 102.8 mmol/L (98-107) 12/09/18 04:52 Carbon Dioxide 25 mmol/L (22-30) 12/09/18 04:52 Anion Gap 16 mmol/L 12/09/18 04:52 BUN 8 mg/dL (7-17) 12/09/18 04:52 Creatinine 0.5 mg/dL (0.7-1.2) L 12/09/18 04:52 Estimated GFR > 60 ml/min 12/09/18 04:52 BUN/Creatinine Ratio 16 % 12/09/18 04:52 Glucose 99 mg/dL (65-100) 12/09/18 04:52 Calcium 8.5 mg/dL (8.4-10.2) 12/09/18 04:52 Total Bilirubin 0.40 mg/dL (0.1-1.2) 12/09/18 04:52 AST 51 units/L (5-40) H 12/09/18 04:52 ALT 73 units/L (7-56) H 12/09/18 04:52 Alkaline Phosphatase 66 units/L (35-129) 12/09/18 04:52 Troponin T < 0.010 ng/mL (0.00-0.029) 12/04/18 22:37 C-Reactive Protein 1.50 mg/dL (0.00-1.30) H 12/05/18 00:49 Total Protein 6.3 g/dL (6.3-8.2) 12/09/18 04:52 Albumin 3.3 g/dL (3.9-5) L 12/09/18 04:52 Albumin/Globulin Ratio 1.1 % 12/09/18 04:52 HCG, Qual Negative (Negative) 12/04/18 19:25 Rheumatoid Factor < 10 IU/ml (0-13) 12/06/18 12:37 Complement C3 154 mg/dL (83-193) 12/06/18 12:37 Complement C4 29 mg/dL (15-57) 12/06/18 12:37 Influenza A (Rapid) Negative (Negative) 12/04/18 21:50 Influenza B (Rapid) Negative (Negative) 12/04/18 21:50 Group A Strep Rapid Negative (Negative) 12/04/18 21:50 Active Medications - Current Medications Current Medications: Generic Name Dose Route Start Last Admin Trade Name Freq PRN Reason Stop Dose Admin Acetaminophen 650 mg 12/08/18 17:45 12/08/18 18:13 Tylenol PO 650 mg Q4H PRN Administration Pain, Mild (1-3) Enoxaparin Sodium 40 mg 12/06/18 22:00 12/10/18 21:28 Lovenox SUB-Q 40 mg QDAY@2200 ISA Administration Famotidine 20 mg 12/06/18 22:00 12/11/18 10:32 Pepcid PO 20 mg BID ISA Administration Morphine Sulfate 2 mg 12/05/18 02:01 12/10/18 21:29 Morphine IV 2 mg Q3H PRN Administration Pain, Moderate (4-6) Ondansetron HCl 4 mg 12/05/18 02:02 12/09/18 04:03 Zofran IV 4 mg Q8H PRN Administration Nausea And Vomiting Oxycodone/Acetaminophen 1 tab 12/06/18 12:51 12/11/18 06:18 Percocet 5/325 PO 1 tab Q6H PRN Administration Pain, Moderate (4-6)
[2018-12-11] MEDS: SOLU-Medrol IV SCH ×2 (14:36→22:22)
[2018-12-11 17:13] VITALS: BP 118/74
[2018-12-11 20:59] LABS: ANA Screen, IFA Negative (Negative)
[2018-12-11] MEDS ORDERED: COLACE PO SCH (22:00)
[2018-12-11] MEDS: LOVENOX SUB-Q SCH (22:22)
--- NOTE | 2018-12-12 08:52 | Discharge Summary ---
Providers - Providers Date of Admission: 12/05/18 01:57 Date of discharge: 12/12/18 Attending physician: NAKIA BERMUDEZ 12/05/18 00:48 Consult to Physician [CONS] Stat Comment: Dr. Ortiz spoke with Dr. Bojorquez @ 0044 Consulting Provider: GONZALEZ BOJORQUEZ Physician Instructions: Reason For Exam: poss carotid dissection 12/05/18 16:33 Consult to Physician [CONS] Routine Comment: Consulting Provider: MITA ORANTES Physician Instructions: Reason For Exam: swelling neck and face/abnormal carotid doppler 12/06/18 11:13 Consult to Physician [CONS] Routine Comment: Consulting Provider: JULISA GONZALEZ Physician Instructions: Reason For Exam: soft tissue in the rt carotid sheath/infc/inflam 12/08/18 11:01 Consult to Physician [CONS] Routine Comment: Consulting Provider: BALDEMAR COOMBS Physician Instructions: Reason For Exam: IV access/antibiotic/CTA chest [facility] Reason for admission: chest pain, facial and neck pain Condition: Stable Hospital course: The patient is a 39-year-old female (Albanian-speaking) with no significant past medical history who is originally from [place], moved to the about 7 years ago was at her baseline state of health until about 7 days [employer] she started developing a right facial and neck swelling with pain. She felt feverish but did not check her temperature at home. The pain was quite severe, hence came to the emergency room and was hospitalized. Initial CT neck raise some concerns for possible carotid dissection however follow-up CTA of the head and neck showed some enhancement of the carotid sheath on the right side. She denied any sore throat or cough. She denies any shortness of breath. She denied any nausea, vomiting or diarrhea. She denies any dysphagia. Complained of headaches as well as right-sided neck pain which hasn't improved much since admission She report ed slight relief with pain medications. She remained afebrile here. She was evaluated by vascular surgery, infectious disease and neurology. The patient definitely had a unilateral right sided neck swelling and tenderness with CT evidence of carotid sheath enhancement. There was no leukocytosis. No enhancement/thrombosis of the right internal jugular vein to suggest any septic thrombophlebitis/Lemierre's syndrome. CT images does not reveal septic emboli. Showed trace bilateral pleural effusions, suggestive of possible serositis, hence autoimmune disease remains a concern. No evidence of infectious etiology. The patient was treated initially with Unasyn but later discontinued after infectious disease ruled out infectious etiology. RH Factor: less than 10, C3/C4: normal range, TTE: no valvular vegetation. Autoimmune panel was pending with remaining studies including JAMES, ds-DNA, RA, ANCA panel and HIV. Unfortunately, patient left AMA without completion of the workup. Dedicated discharge time 32 minutes. Disposition: DC-07 LEFT AGAINST MED ADVICE - Discharge Diagnoses (1) Neck pain Status: Acute (2) Neck swelling Status: Acute Core Measure Documentation - Palliative Care Palliative Care/ Comfort Measures: Not Applicable - Core Measures Any of the following diagnoses?: none Exam - Constitutional Vitals: Temp Pulse Resp BP Pulse Ox 98.6 F 67 20 118/74 93 12/11/18 16:35 12/11/18 16:35 12/11/18 16:35 12/11/18 16:35 12/11/18 16:35 Plan Follow up with: RACHEL RENEE MD [Primary Care Provider] - 3-5 Days
[2018-12-12 13:08] LABS: Myeloperoxidase Antibody <1.0 AI (<1.0)
== END 2018-12-12 03:55 | disposition left against medical advice (07) | DRG 552 ==
LOC: ED 18:56 → IMCU 12-05 01:57 → EDBD 12-05 01:57 → IMCU 12-05 10:14 → 3A 12-05 18:45
PROVIDERS: ADMIT Internal Medicine; ATTEND Hospitalist
PROC: 06HY33Z Insertion of Infusion Device into Lower Vein, Percutaneous Approach (ICD-10-PCS; principal; 2018-12-08)
DX: M54.2 Cervicalgia (principal); E44.0 Moderate protein-calorie malnutrition; J90 Pleural effusion, not elsewhere classified; R22.1 Localized swelling, mass and lump, neck; E66.9 Obesity, unspecified; E87.6 Hypokalemia; Z53.21 Procedure and treatment not carried out due to patient leaving prior to being seen by health care provider; Z90.49 Acquired absence of other specified parts of digestive tract; Z98.51 Tubal ligation status; Z83.3 Family history of diabetes mellitus; Z80.9 Family history of malignant neoplasm, unspecified; Z68.38 Body mass index [BMI] 38.0-38.9, adult; Z71.3 Dietary counseling and surveillance
CPT/HCPCS: 36415; 70491; 70496; 70498; 71046; 71275; 80048; 80053; 84484; 84703; 85014; 85018; 85025; 85049; 85520; 85610; 85652; 85730; 86021; 86038; 86140; 86160; 86162; 86225; 86618; 87040; 87116; 87400; 87430; 87806; 93005; 93010; 93306; 96374; 99291; G0378; J0295; J1644; J1650; J1885; J2270; J2405; J2920; J3480; J7030; Q9967

== ENCOUNTER 2019-04-15 23:30 | Emergency (ER) | payer SELFPAY ==
[2019-04-16] MEDS ORDERED: VITAMIN B-1 100 MG, FOLVITE 1 MG, INFUVITE 10 ML in NACL 0.9% 1000 ML 1,000 ML IV ONE (00:46)
[2019-04-16] MEDS ORDERED: NACL 0.9% 1000 ML 1,000 ML IV ONE (01:28)
[2019-04-16 01:31] LABS: Basophils % (Auto) 0.4 % (0.0-1.8); Eosinophils # (Auto) 0.1 K/mm3 (0.0-0.4); Eosinophils % (Auto) 1.3 % (0.0-4.3); Hematocrit 40.3 % (30.3-42.9); Hemoglobin 13.7 gm/dl (10.1-14.3); Lymphocytes # (Auto) 1.9 K/mm3 (1.2-5.4); Lymphocytes % (Auto) 25.5 % (13.4-35.0); Mean Corpuscular HGB Conc 34 % (30-34); Mean Corpuscular Volume 92 fl (79-97); Monocytes # (Auto) 0.6 K/mm3 (0.0-0.8); Monocytes % (Auto) 7.6 % (0.0-7.3); Platelet Count 251 K/mm3 (140-440); Red Blood Count 4.41 M/mm3 (3.65-5.03); Red Cell Distribution Width 13.8 % (13.2-15.2)
[2019-04-16 01:56] LABS: Alanine Aminotransferase 20 units/L (7-56); BUN/Creatinine Ratio 17; Blood Urea Nitrogen 10 mg/dL (7-17); Calcium 8.1 mg/dL (8.4-10.2); Hemolysis Index 12
--- NOTE | 2019-04-16 02:30 | Cat Scan Report ---
CT head/brain wo con INDICATION / CLINICAL INFORMATION: Altered mental status. TECHNIQUE: All CT scans at this location are performed using CT dose reduction for ALARA by means of automated e xposure control. COMPARISON: None available. FINDINGS: The ventricular system is normal in size and configuration. No focal lesion or mass effect is seen. T here is no evidence of intracranial hemorrhage or major vessel occlusion. The calvarium is intact. Th e visualized paranasal sinuses and mastoid air cells are clear. IMPRESSION: No acute abnormality. Signer Name: John Escoto MD Signed: 04/16/2019 2:26 AM Workstation Name: [id number]
[2019-04-16 04:11] LABS: Amphetamine Screen,Urine PRESUMPTIVE NEGATIVE; Benzodiazepines Screen,Urine PRESUMPTIVE NEGATIVE; Cannabinoid Screen,Urine PRESUMPTIVE NEGATIVE; Cocaine Screen,Urine PRESUMPTIVE NEGATIVE; Methadone Screen,Urine PRESUMPTIVE NEGATIVE; Opiate Screen,Urine PRESUMPTIVE NEGATIVE
--- NOTE | 2019-04-16 04:25 | Emergency Department Report ---
ED Alcohol HPI - General Chief Complaint: Alcohol Stated Complaint: ETOH Time Seen by Provider: 04/16/19 01:27 Source: family Mode of arrival: Stretcher Limitations: Language Barrier, Other (spoke via interpretor) - History of Present Illness Initial Comments: pt was brought to ER after passing out from drinking alcohol. no headache, neck pain, or other injury. Came to ER for evaluation. had been drinking all day today. no vomiting. MD Complaint: alcohol intoxication Last Drink: just [employer] Chronic Alcohol Use: Yes Previous Visits for Alcohol Intoxication?: Yes Recent Trauma: No Associated Symptoms: denies other symptoms Treatments Prior to Arrival: none - Related Data Home Medications Medication Instructions Recorded Confirmed Last Taken No Known Home Medications [No 12/05/18 12/05/18 Unknown Reported Home Medications] Allergies Allergy/AdvReac Type Severity Reaction Status Date / Time No Known Allergies Allergy Verified 12/05/18 00:25 ED Review of Systems ROS: Stated complaint: ETOH Other details as noted in HPI Comment: All other systems reviewed and negative Constitutional: denies: see HPI, chills ENT: denies: ear pain, throat pain Respiratory: denies: cough Cardiovascular: denies: chest pain, palpitations Genitourinary: denies: urgency Skin: denies: rash Neurological: weakness ED Past Medical Hx - Past Medical History Previous Medical History?: No Hx Congestive Heart Failure: No Hx Diabetes: No Hx Asthma: No Hx COPD: No Hx HIV: No - Surgical History Past Surgical History?: Yes Hx Cholecystectomy: Yes Additional Surgical History: c sec x2, gall stones - Social History Smoking Status: Never Smoker Substance Use Type: None - Medications Home Medications: Home Medications Medication Instructions Recorded Confirmed Last Taken Type No Known Home Medications [No 12/05/18 12/05/18 Unknown History Reported Home Medications] ED Physical Exam - General Limitations: Language Barrier General appearance: alert, in no apparent distress - Head Head exam: Present: atraumatic, normocephalic - Eye Eye exam: Present: normal appearance, PERRL, EOMI Pupils: Present: normal accommodation - ENT ENT exam: Present: normal exam, normal orophraynx - Neck Neck exam: Present: normal inspection - Respiratory Respiratory exam: Present: normal lung sounds bilaterally - Cardiovascular Cardiovascular Exam: Present: regular rate, tachycardia - GI/Abdominal GI/Abdominal exam: Present: soft, normal bowel sounds - Back Exam Back exam: Present: normal inspection - Neurological Exam Neurological exam: Present: alert, oriented X3 ED Course Vital Signs 04/16/19 04/16/19 04/16/19 00:00 01:00 02:00 Temperature 98.0 F Pulse Rate 102 H 98 H 99 H Respiratory 12 20 20 Rate Blood Pressure 102/65 Blood Pressure 102/65 102/67 105/72 [Left] O2 Sat by Pulse 99 99 100 Oximetry 04/16/19 04/16/19 03:00 03:40 Temperature Pulse Rate 99 H 98 H Respiratory 18 12 Rate Blood Pressure Blood Pressure 101/72 110/69 [Left] O2 Sat by Pulse 100 98 Oximetry ED Medical Decision Making - Lab Data Result diagrams: 04/16/19 00:55 04/16/19 00:55 Critical care attestation.: If time is entered above; I have spent that time in minutes in the direct care of this critically ill patient, excluding procedure time. ED Disposition Clinical Impression: Alcohol intoxication Qualifiers: Complication of substance-induced condition: uncomplicated Qualified Code(s): F10.920 - Alcohol use, unspecified with intoxication, uncomplicated Disposition: DC-01 TO HOME OR SELFCARE Is pt being admited?: No Does the pt Need Aspirin: No Condition: Stable Instructions: Alcohol Intoxication (ED), Abuse of Alcohol (ED) Referrals: RACHEL RENEE MD [Primary Care Provider] - 3-5 Days
[2019-04-16 05:28] VITALS: BP 106/67
== END 2019-04-16 05:10 | disposition home or self-care (01) ==
LOC: ED 23:30
DX: F10.929 Alcohol use, unspecified with intoxication, unspecified (principal)
CPT/HCPCS: 36415; 70450; 80053; 80307; 83735; 84703; 85025; 96361; 96365; 99284; J3411; J7030; 80320; G0480